=== PATIENT | male | born 1965 | race Caucasian/White ===

== ENCOUNTER 2022-06-09 15:39 | Inpatient (IN) | payer OTHER, SELFPAY ==
--- NOTE | ~2022-06-09 | MR_ITS ---
EXAMINATION: MRI ABDOMEN WITH AND WITHOUT CONTRAST CLINICAL INFORMATION: Abnormal CT of liver, Elevated LFT's, R/O mass. COMPARISON: 06/09/2022 CT scan TECHNIQUE: Multiple routine MRI sequences through the abdomen were obtained on a high-field 1.5Tesla MRI. Pre-and postcontrast images with 8 mL of Gadavist intravenous contrast were obtained. This included a dynamic contrast-enhanced technique. FINDINGS: Lung bases: The visualized lung bases are unremarkable. Liver: Liver demonstrates diffuse fatty infiltration with loss of signal on the out of phase imaging. There is also a well-demarcated T2 bright nonenhancing 1.7 cm cyst in the anterolateral aspect of segment 8 of the liver. There is a few scattered additional smaller T2 bright nonenhancing cysts noted as well. I do not appreciate any suspicious hepatic lesion. No biliary ductal dilatation. Gallbladder: Gallbladder is unremarkable. No suspicious gallstones or filling defects. No gallbladder wall thickening or pericholecystic inflammatory changes. Pancreas: Pancreas is homogeneous in signal. No pancreatic ductal dilatation or obstruction. No peripancreatic inflammatory changes or fluid. Spleen: Unremarkable Adrenals: Unremarkable Kidneys: Kidneys are normal in size, shape, and signal. No suspicious renal mass lesion seen. No hydronephrosis or perinephric edema. Other: No bulky adenopathy MR/MR abdomen wo/w con IMPRESSION: Diffuse fatty infiltration of the liver. Tiny simple appearing hepatic cysts seen the largest of which in the anterolateral aspect of segment 8 corresponds to the subtle hypodensity seen on the CT scan. No suspicious hepatic lesions nor biliary ductal dilatation.
--- NOTE | ~2022-06-09 | CT_ITS ---
EXAMINATION: CT ABDOMEN AND PELVIS WITHOUT CONTRAST CLINICAL INFORMATION: Diffuse abdominal pain COMPARISON: None TECHNIQUE: Multidetector volumetric imaging was performed from the superior aspect of the liver through the pubic symphysis. Sagittal and coronal reformatted images were obtained on the technologist's workstation. This CT examination was performed using dose optimization techniques as appropriate, variously including the following: *Automated exposure control *Adjustment of mA and/or kV according to patient size (this includes techniques or standardized protocols for targeted exams where dose is matched to indication/reason for exam; i.e. extremities or head) *Use of iterative reconstruction technique DLP: 524 mGy-cm FINDINGS: LUNG BASES: The visualized lung bases are unremarkable. LIVER, GALLBLADDER, AND BILIARY TREE: Hepatomegaly with the liver measuring 21.8 cm in craniocaudal extent. Diffuse hepatic hypoattenuation compatible steatosis with geographic area of more dense fatty infiltration in the caudate. Additionally, there are subtle heterogeneous attenuation throughout the liver. A discrete 1.5 cm low-density cyst is seen in segment 8. No other discrete lesion. No biliary ductal dilation. The gallbladder is unremarkable with no evidence of radiopaque gallstones, gallbladder wall thickening, or obvious pericholecystic inflammatory changes. PANCREAS: Unremarkable. SPLEEN: Unremarkable. ADRENAL GLANDS: Unremarkable. KIDNEYS AND URETERS: The kidneys are normal in size, shape, and attenuation. No hydronephrosis, hydroureter, or calculi seen. No perinephric stranding. BLADDER: Unremarkable. GASTROINTESTINAL TRACT: Extensive colonic diverticulosis. Relatively long segment of sigmoid and rectal circumferential mural thickening with extensive underlying diverticulosis and surrounding and prominent inflammatory fat stranding. Additionally, there is a small air-filled loculated appearing collection interposed between the anterior rectal wall and the inflamed sigmoid colon on axial image 77 of series 3. Findings suspicious for a small microperforation/contained perforation. No fluid-filled intramural or pericolonic abscess. No additional extraluminal gas or ivory intraperitoneal free air. Stomach is grossly unremarkable. There a few prominent though not frankly dilated distended loops of jejunum in the left upper quadrant with mild adjacent mesenteric fat stranding in small mesenteric lymph nodes. No appreciable small bowel wall thickening. Normal appendix. ABDOMINAL WALL: No significant hernia is appreciated. LYMPH NODES: Mildly enlarged portacaval lymph node measuring 1.2 cm in short axis, nonspecific. Small left upper quadrant mesenteric lymph nodes with surrounding mesenteric stranding, not enlarged by size criteria. No additional lymphadenopathy. VASCULAR: Mild to moderate vascular calcifications. Normal caliber abdominal aorta. PELVIC VISCERA: Unremarkable. OSSEOUS STRUCTURES: No acute fracture or suspicious osseous lesion. Multilevel degenerative disc disease most advanced at L4-L5 and L5-S1. CT/CT abdomen pelvis wo con IMPRESSION: 1. Relatively long segment thickening of the sigmoid and rectal wall with inflammatory fat stranding. Differential considerations include bowel wall ischemia or acute diverticulitis. Small pocket of loculated gas interposed between the rectum and inflamed sigmoid is suspicious for a small microperforation/contained perforation. No fluid-filled pericolonic abscess. 2. No pneumatosis to suggest specific evidence of bowel wall ischemia. 3. Prominently distended though not frankly dilated cluster degenerative bowel loops in the left hemiabdomen with mild mesenteric fat stranding and small likely reactive mesenteric lymph nodes, nonspecific. Findings could represent a localized ileus or enteritis versus mild mesenteric panniculitis. 4. Hepatomegaly and hepatic steatosis. Slightly heterogeneous attenuation throughout the liver, which could be due to heterogeneous fatty infiltration though would recommend a multiphasic MRI abdomen to assess for underlying hepatic lesions or other infiltrative process.
--- NOTE | ~2022-06-09 | XR_ITS ---
EXAMINATION: PORTABLE CHEST 1 VIEW CLINICAL INFORMATION: cp . COMPARISON: No recent pertinent prior studies are available for comparison. TECHNIQUE: Portable frontal view of the chest was obtained. FINDINGS: The lungs are well expanded. No focal infiltrate, effusion, edema, or pneumothorax. Cardiac and mediastinal silhouettes are within normal limits for technique. No acute bony abnormality seen. XR/XR chest 1V IMPRESSION: No evidence of acute disease.
[2022-06-09 15:51] VITALS: BP 167/99; PULSE 112; RESP 20; TEMP 36.8; O2SAT 97; BMI 21.6
--- NOTE | 2022-06-09 15:53 | ECG_ITS ---
Test Reason : dizzy Blood Pressure : / mmHG Vent. Rate : 104 BPM Atrial Rate : 104 BPM P-R Int : 194 ms QRS Dur : 096 ms QT Int : 352 ms P-R-T Axes : 047 067 -14 degrees QTc Int : 462 ms Artifact in tracing Sinus tachycardia Due to artifact, cannot assess ST segment abnormality; nothing obvious No previous ECGs available Referred By: Generic ED Physician Electronically Signed By:JOSSE HOWELL
[2022-06-09 16:53] LABS: Hematocrit 40.2 % (42.0-52.0); Hemoglobin 14.8 g/dl (14.0-18.0); Mean Corpuscular HGB Conc 36.8 g/dl (31.0-36.0); Mean Corpuscular Hemoglobin 33.9 pg (27.0-33.0); Mean Platelet Volume 9.2 fL (9.4-12.4); Platelet Count 236 X10*3/uL (160-400); Red Blood Count 4.37 X10*6/uL (4.60-5.80); Red Cell Distribution Width 12.7 % (11.0-16.0); White Blood Count 8.6 X10*3/uL (4.8-10.8)
[2022-06-09 17:06] LABS: Anion Gap 18 (12-20); Blood Urea Nitrogen 15 mg/dL (9-16); Calcium 8.7 mg/dL (8.4-10.2); Carbon Dioxide 22 mmol/L (22-29); Chloride 103 mmol/L (96-108); Creatinine Clr Calc Pharmacy 95.2; Estimated Glomerular Filt Rate > 60; Glucose Random 125 mg/dL (60-115); Sodium 140 mmol/L (135-145)
[2022-06-09 17:13] LABS: Troponin-I High Sensitivity < 3.5 ng/L (<3.5-35.0)
--- NOTE | 2022-06-09 19:38 | ED.GENADULT ---
HPI - General Adult General Chief complaint: Recheck/Abnormal Lab/Rx Stated complaint: cardiac issues sent by a specialist Time Seen by Provider: 06/09/22 19:37 Source: patient Mode of arrival: ambulatory Limitations: no limitations History of Present Illness HPI narrative: Patient sent from GI office for blood pressure 167/99, headache dizziness. Patient been feeling dizzy for last 1 week having sweating spells denies any chest pain or palpitation or shortness of breath on arrival patient's blood pressure was 167/99 pulse rate 112 temperature 98.2 saturating 97% on room air Related Data Home Medications Medication Instructions Recorded Confirmed allopurinol 300 mg tablet 1 tab PO DAILY 06/09/22 06/09/22 Allergies Allergy/AdvReac Type Severity Reaction Status Date / Time No Known Allergies Allergy Verified 06/09/22 19:42 Review of Systems Review of Systems: Yes all other systems are reviewed and are negative [facility] Social History Social History Advance Directives: No Advance Directives Information Provided: No Physical Exam ED Vital Signs: Vital Signs - 24 hr 06/09/22 15:51 06/09/22 20:18 Temperature 98.2 F Pulse Rate 112 H Respiratory Rate 20 Blood Pressure 167/99 H 158/88 H Pulse Oximetry 97 Oxygen Delivery Method Room Air BMI result Body Mass Index 21.6 Appearance: Alert. Oriented X3. No acute distress. Eyes: No pallor icterus ENT: Pharynx normal. Oral Mucosa moist Neck: Normal inspection. Neck supple. CVS: Normal heart rate and rhythm. Pulses normal. Respiratory: No respiratory distress. Equal air entry bilateral, no wheezing/rales/rhonchi Abdomen: Soft , deep tenderness suprapubic area and left lower quadrant no guarding or rebound tenderness Bowel sounds are present, no mass palpable, no CVA tenderness Skin: Skin warm and dry. Normal skin color. Normal skin turgor. Extremities: No lower extremity edema. No calf tenderness Neuro: Oriented X 3. No motor deficit. No sensory deficit.No cerebellar signs , cranial nerves II-XII intact Medical Decision Making MDM Narrative Medical decision making narrative: 2200Patient with transient elevated blood pressure and hypokalemia noticed to have lower abdominal pain for last few days CT scan showed micro perforation with increased inflammation. Will admit the patient for possible ruptured diverticulitis will start patient on Zosyn patient repeat blood pressure improved to 158/88 patient's lactic acid level is only 1.0 unlikely ischemic Lab Data Lab results reviewed: Yes I reviewed the patient's lab results. Result diagrams: 06/09/22 16:43 06/09/22 16:43 Labs: Lab Results 06/09/22 06/09/22 06/09/22 Range/Units 16:43 16:43 16:43 WBC 8.6 (4.8-10.8) X10*3/uL RBC 4.37 L (4.60-5.80) X10*6/uL Hgb 14.8 (14.0-18.0) g/dl Hct 40.2 L (42.0-52.0) % MCV 92.0 (80.0-98.0) fL MCH 33.9 H (27.0-33.0) pg MCHC 36.8 H (31.0-36.0) g/dl RDW 12.7 (11.0-16.0) % Plt Count 236 (160-400) X10*3/uL MPV 9.2 L (9.4-12.4) fL Absolute Nucleated RBC 0.000 (0.0-0.012) X10*3/uL Nucleated RBC % (auto) 0.0 (0.0-0.2) /100WBC Sodium 140 (135-145) mmol/L Potassium 3.0 L (3.3-5.1) mmol/L Chloride 103 (96-108) mmol/L Carbon Dioxide 22 (22-29) mmol/L Anion Gap 18 (12-20) BUN 15 (9-16) mg/dL Creatinine 0.90 (0.5-1.4) mg/dL Estim Creat Clear Calc 95.2 Estimated GFR > 60 Random Glucose 125 H (60-115) mg/dL Calcium 8.7 (8.4-10.2) mg/dL Troponin I High Sens < 3.5 (<3.5-35.0) ng/L COVID-19 ([facility]) (Negative) COVID-19 Clin Com 06/09/22 Range/Units 20:04 WBC (4.8-10.8) X10*3/uL RBC (4.60-5.80) X10*6/uL Hgb (14.0-18.0) g/dl Hct (42.0-52.0) % MCV (80.0-98.0) fL MCH (27.0-33.0) pg MCHC (31.0-36.0) g/dl RDW (11.0-16.0) % Plt Count (160-400) X10*3/uL MPV (9.4-12.4) fL Absolute Nucleated RBC (0.0-0.012) X10*3/uL Nucleated RBC % (auto) (0.0-0.2) /100WBC Sodium (135-145) mmol/L Potassium (3.3-5.1) mmol/L Chloride (96-108) mmol/L Carbon Dioxide (22-29) mmol/L Anion Gap (12-20) BUN (9-16) mg/dL Creatinine (0.5-1.4) mg/dL Estim Creat Clear Calc Estimated GFR Random Glucose (60-115) mg/dL Calcium (8.4-10.2) mg/dL Troponin I High Sens (<3.5-35.0) ng/L COVID-19 ([facility]) Negative (Negative) COVID-19 Clin Com See Note Imaging Data CT scan - abdomen: Radiologist's impression: RDER #: [id number] CT/CT abdomen pelvis wo con IMPRESSION: ? 1. Relatively long segment thickening of the sigmoid and rectal wall with inflammatory fat stranding. Differential considerations include bowel wall ischemia or acute diverticulitis. Small pocket of loculated gas interposed between the rectum and inflamed sigmoid is suspicious for a small microperforation/contained perforation. No fluid-filled pericolonic abscess. 2. No pneumatosis to suggest specific evidence of bowel wall ischemia. 3. Prominently distended though not frankly dilated cluster degenerative bowel loops in the left hemiabdomen with mild mesenteric fat stranding and small likely reactive mesenteric lymph nodes, nonspecific. Findings could represent a localized ileus or enteritis versus mild mesenteric panniculitis. 4. Hepatomegaly and hepatic steatosis. Slightly heterogeneous attenuation throughout the liver, which could be due to heterogeneous fatty infiltration though would recommend a multiphasic MRI abdomen to assess for underlying hepatic lesions or other infiltrative process. ? Discharge Plan Discharge Clinical Impression: Acute diverticulitis, Acute hypokalemia Patient Disposition: Admitted As Inpatient
[2022-06-09] MEDS: Potassium Bicarbonate/Cit AC 25 MEQ TABLET.EFF PO (20:16)
[2022-06-09 20:18] VITALS: BP 158/88
[2022-06-09 20:24] LABS: COVID-19 Test Negative (Negative); IDNOW Serial# 55D5AD1C
--- NOTE | 2022-06-09 22:15 | P.HPHOSP_ITS ---
History of Present Illness Date of Service: 06/09/22 Chief Complaint: abd pain 57-year-old male with past medical history of gout presents to the hospital with complaints of lower abdominal pain. Patient reports that his symptoms started about a week and a half ago, he also has history of hemorrhoids therefore with the persistent pain and that history of hemorrhoid he went to visit his GI doctor, of the GI doctor he became dizzy, the checked his blood pressure was elevated therefore he was sent to the hospital. On arrival to the hospital patient's BP was found in the 160s/99 and improved with administration of 10 mg of IV hydralazine. But as patient was complaining of lower abdominal pain, CT scan of the abdomen was obtained which showed diverticulitis with small microperforation/contained perforation. On questioning the patient reports that his symptoms started about a week and half ago, 4/10, constant, nonradiating, localized to the lower abdomen across, not associated with any nausea or vomiti ng, no chest pain or shortness of breath, no cough, no urinary symptoms no lower extremity edema. He has no headache or change in vision. Reports that he is feels anxious. On arrival to the ED patient's heart rate in 112, blood pressure 167/99. Labs are significant for WBC count of 8.6, lactic acid of 1.0, Abdomen pelvic CT has multiple abnormal findings including long segment thickening of the sigmoid and rectal wall with inflammatory fat stranding, differential include bowels fowler yanes Saba or acute diverticulitis, small pocket of loculated gas interposed between the rectum and the inflamed sigmoid suspicious for small microperforation/contained perforation. No pneumatosis to suggest specific evidence of bowel wall ischemia, prominent distended but not frankly dilated cluster degenerative bowel loops in the left hemiabdomen with mild mesenteric fat stranding and small reactive mesenteric lymph nodes differentials include localize ileus or enteritis versus mild mesenteric pancolitis Patient started on IV antibiotics and will be admitted for further management Review of Systems Review of Systems: Yes all other systems are reviewed and are negative [facility] Medical History (Updated 06/10/22 @ 06:39 by Eva Phillips MD) Gout Family History (Updated 06/10/22 @ 06:38 by Eva Phillips MD) Other No family history of coronary artery disease Surgical History (Updated 06/10/22 @ 06:38 by Eva Phillips MD) No pertinent past surgical history Social History Advance Directives: No Advance Directives Information Provided: No Meds Allergies Allergy/AdvReac Type Severity Reaction Status Date / Time No Known Allergies Allergy Verified 06/09/22 19:42 Home Medications Medication Instructions Recorded Confirmed Last Taken Type allopurinol 300 mg tablet 1 tab PO DAILY 06/09/22 06/09/22 Unknown History Physical Exam Vital Signs and Narrative: Vital Signs: Last Vital Signs Temp 98.2 F 06/09/22 15:51 Pulse 112 H 06/09/22 15:51 Resp 20 06/09/22 15:51 BP 158/88 H 06/09/22 20:18 Pulse Ox 97 06/09/22 15:51 O2 Del Method 06/09/22 15:51 BMI result Body Mass Index 21.6 Const: General: cooperative and no acute distress Orientation/consciousness: patient oriented x3 Eyes: General: appearance normal, both eyes and all related structures Resp: Effort & Inspection: normal respiratory effort Auscultation: clear to auscultation bilaterally Cardio: Rate: regular rate Rhythm: regular rhythm GI: Other: Lower abdominal tenderness with no rebound or guarding Palpation (GI): Soft to palpation Auscultation: normal bowel sounds Skin: General skin exam: no rashes or lesions noted Neuro: General: patient oriented x3 Cognition (Neuro): normal cognition Extrem: General: Yes normal to inspection and Yes no pedal edema Results Labs CBC and Chem 7: 06/09/22 16:43 06/09/22 16:43 Labs: Laboratory Results - last 24 hr 06/09/22 06/09/22 06/09/22 16:43 16:43 20:04 MCV 92.0 MCH 33.9 H MCHC 36.8 H RDW 12.7 Plt Count 236 MPV 9.2 L Absolute Nucleated RBC 0.000 Nucleated RBC % (auto) 0.0 Anion Gap 18 Estim Creat Clear Calc 95.2 Estimated GFR > 60 Random Glucose 125 H Calcium 8.7 COVID-19 ([facility]) Negative COVID-19 Clin Com See Note Imaging Radiologist's Impressions: Impressions Chest X-Ray 06/09/22 20:00 IMPRESSION: No evidence of acute disease. Abdomen/Pelvis CT 06/09/22 20:47 IMPRESSION: 1. Relatively long segment thickening of the sigmoid and rectal wall with inflammatory fat stranding. Differential considerations include bowel wall ischemia or acute diverticulitis. Small pocket of loculated gas interposed between the rectum and inflamed sigmoid is suspicious for a small microperforation/contained perforation. No fluid-filled pericolonic abscess. 2. No pneumatosis to suggest specific evidence of bowel wall ischemia. 3. Prominently distended though not frankly dilated cluster degenerative bowel loops in the left hemiabdomen with mild mesenteric fat stranding and small likely reactive mesenteric lymph nodes, nonspecific. Findings could represent a localized ileus or enteritis versus mild mesenteric panniculitis. 4. Hepatomegaly and hepatic steatosis. Slightly heterogeneous attenuation throughout the liver, which could be due to heterogeneous fatty infiltration though would recommend a multiphasic MRI abdomen to assess for underlying hepatic lesions or other infiltrative process. Assessment and Plan (1) Acute diverticulitis: Status: Acute (2) Abnormal abdominal CT scan: Status: Acute Plan 57-year-old male with past medical history of gout, lower diagnosed hypertension presents to the hospital with a hypertensive episode at GI doctor office found to have possible diverticulitis # acute diverticulitis with micro perforation - has significant abnormality of abdominal CT as seen above - no leukocytosis, afebrile, normal lactic acid - will treat with IV antibiotics - IV fluids - GI and general surgery consulted as he has significantly abdomen abdominal CT - LDH pending # abnormal abdominal CT - showing possible enteritis versus pancolitis versus ileus as well as possible bowel wall ischemia - IV antibiotics started - IV fluids - GI consulted # gout - continue allopurinol DVT prophylaxis: Lovenox Given the severity of his abnormal CT patient will require minimum 2 night hospital stay for further evaluation by GI, Quality Stroke Does the patient have a stroke diagnosis?: No VTE Prior VTE?: No VTE Risk Level:: Medical - moderate - high VTE Device Contraindication: Treatment Not Indicated VTE Drug Contraindication: N/A - Med Ordered
[2022-06-09] MEDS: Piperacillin Sodium/Tazobactam 3.375 GM in 0.9 % Sodium Chloride 50 ML IV (22:33)
[2022-06-09] MEDS: Enoxaparin Sodium 40 MG/0.4 ML SYRINGE SUBCUT (22:34)
[2022-06-09] MEDS: cefTRIAXone sodium 1 GM in 0.9 % Sodium Chloride 50 ML IV (22:38)
[2022-06-09 22:40] LABS: INTERNATIONAL NORM RATIO 0.9 (0.9-1.1); Prothrombin Time 10.8 SEC (10.0-13.1)
[2022-06-09] MEDS: 0.9 % Sodium Chloride 1,000 ML 999 ML IV (23:40)
[2022-06-09 23:57] VITALS: BP 123/78; PULSE 64; O2SAT 98
[2022-06-10] MEDS: metroNIDAZOLE 500 MG TABLET PO ×4 (02:29→23:25)
[2022-06-10] MEDS: 0.9 % Sodium Chloride Flush 3 ML SYRINGE IVFLUSH ×4 (02:30→20:38)
[2022-06-10 06:00] VITALS: BP 148/84; PULSE 68; O2SAT 97
[2022-06-10 06:42] LABS: MANUAL DIFF FLAG NO
[2022-06-10 07:22] LABS: Basophils Absolute Auto 0.1 X10*3/uL (0.0-0.2); Basophils Percent Auto 0.7 % (0-2); Eosinophils Absolute Auto 0.1 X10*3/uL (0.0-0.4); Eosinophils Percent Auto 1.6 % (0-4); Hematocrit 37.7 % (42.0-52.0); Hemoglobin 13.8 g/dl (14.0-18.0); Imm Gran Abs Auto 0.02 X10*3/uL (0.00-0.03); Imm Gran Pct Auto 0.3 % (0.0-0.4); Lymphocytes Percent Auto 29.8 % (20-40); Mean Corpuscular HGB Conc 36.6 g/dl (31.0-36.0); Mean Corpuscular Hemoglobin 33.9 pg (27.0-33.0); Mean Corpuscular Volume 92.6 fL (80.0-98.0); Monocytes Absolute Auto 0.8 X10*3/uL (0.1-1.2); Monocytes Percent Auto 11.2 % (2-11); Neutrophils Absolute Auto 3.8 x10*3/uL (2.0-8.3); Neutrophils Percent Auto 56.4 % (45-73); Platelet Count 215 X10*3/uL (160-400); Red Blood Count 4.07 X10*6/uL (4.60-5.80); Red Cell Distribution Width 12.8 % (11.0-16.0); White Blood Count 6.7 X10*3/uL (4.8-10.8)
[2022-06-10 07:48] LABS: Anion Gap 12 (12-20); Blood Urea Nitrogen 9 mg/dL (9-16); Calcium 7.8 mg/dL (8.4-10.2); Carbon Dioxide 25 mmol/L (22-29); Chloride 102 mmol/L (96-108); Creatinine Clr Calc Pharmacy 109.9; Estimated Glomerular Filt Rate > 60; Glucose Random 86 mg/dL (60-115); Potassium 2.9 mmol/L (3.3-5.1); Sodium 136 mmol/L (135-145)
[2022-06-10 07:56] VITALS: BP 141/87; PULSE 70; RESP 18; O2SAT 95
--- NOTE | 2022-06-10 07:58 | PC.NURSE ---
pt alert and oriented, skin pwd, respiration even and unlabored, pt denies pain/nausea at this time. vs stable
--- NOTE | 2022-06-10 08:03 | PM.CNGS ---
History of Present Illness Consult details Consult date: 06/10/22 Narrative: 57-year-old male admitted last night because of abdominal pain. He describes is mostly in the lower abdomen. He says that he has had this for several days. He denies nausea or vomiting. He denies diarrhea or any blood per rectum. His CAT scan showed long segment thickening of the sigmoid and the rectum small pocket of extraluminal gas that may represent a microperforation. He currently says that he feels well and has minimal pain. Review of Systems Constitutional: Constitutional: Denies chills and Denies fever(s) Cardiovascular: Cardiovascular: Denies chest pain, Denies dyspnea and Denies dyspnea on exertion Respiratory: Respiratory: Denies cough, Denies dyspnea and Denies dyspnea on exertion Gastrointestinal: Gastrointestinal: Denies hematochezia and Denies change in bowel habits Genitourinary: Genitourinary: Denies hematuria and Denies difficulty urinating Musculoskeletal: Musculoskeletal: Denies back pain and Denies limited range of motion Neurologic: Denies focal weakness and Denies convulsions Psychiatric: Psychiatric: Denies depression and Denies mood swings PMF Past Medical History Medical History Gout Family History Family History Other No family history of coronary artery disease Surgical History Surgical History No pertinent past surgical history Social History Social History Household Members: Spouse Housing: House Do you presently have visiting nurse or other home services: No Unable to assess alcohol history related to: Unknown Patient Tobacco Use Status: Never used Tobacco e-Cigarette/Vaping Use: Never Used Second Hand Smoke Exposure: No service: No Current occupational status: employed Meds Allergies Allergy/AdvReac Type Severity Reaction Status Date / Time No Known Allergies Allergy Verified 06/09/22 19:42 Active Medications: Current Medications Acetaminophen (Acetaminophen 325 Mg Tablet) 650 mg PO Q6H PRN PRN Reason: Pain, Mild (Pain Scale 1-3) Docusate Sodium (Docusate Sodium 100 Mg Capsule) 100 mg PO DAILY PRN PRN Reason: Constipation Enoxaparin Sodium (Enoxaparin Sodium 40 Mg/0.4 Ml Syringe) 40 mg SUBCUT Q24H [facility] Last Admin: 06/09/22 22:34 Dose: 40 mg Ceftriaxone Sodium 1 gm/ (Sodium Chloride) 50 mls @ 100 mls/hr IV Q24H [facility] Last Infusion: 06/09/22 23:07 Dose: Infused Potassium Chloride () 10 meq in 100 mls @ 100 mls/hr IV Q1H [facility] Stop: 06/10/22 11:59 Metronidazole (Metronidazole 500 Mg Tablet) 500 mg PO Q8H [facility] Last Admin: 06/10/22 07:51 Dose: 500 mg Ondansetron HCl (Ondansetron Hcl 4 Mg/2 Ml Vial) 4 mg IVPUSH Q8H PRN PRN Reason: Nausea and Vomiting Oxycodone HCl (Oxycodone Hcl Immed Release 5 Mg Tablet) 5 mg PO Q6H PRN PRN Reason: Pain, Severe (Pain Scale 7-10) Sodium Chloride (0.9 % Sodium Chloride Flush 3 Ml Syringe) 3 ml IVFLUSH QSHIFT [facility] Last Admin: 06/10/22 07:51 Dose: 3 ml Home Medications Medication Instructions Recorded Confirmed Last Taken Type allopurinol 300 mg tablet 1 tab PO DAILY 06/09/22 06/10/22 06/09/22 History Physical Exam Vital Signs: Vital Signs: Last Vital Signs Temp 98.2 F 06/09/22 15:51 Pulse 70 06/10/22 07:56 Resp 18 06/10/22 07:56 BP 141/87 H 06/10/22 07:56 Pulse Ox 95 06/10/22 07:56 O2 Del Method 06/10/22 07:56 BMI result Body Mass Index 21.6 Const: General: comfortable and no acute distress Orientation/consciousness: patient oriented x3 Neck: Neck: Yes no lymphadenopathy Resp: Auscultation: clear to auscultation bilaterally Cardio: Rhythm: regular rhythm GI: Other: Minimal tenderness mostly in lower abdomen, no guarding or rebound Palpation (GI): Soft to palpation, nontender and no guarding Neuro: General: patient oriented x3 Results Labs Result diagrams: 06/11/22 05:54 06/13/22 05:57 Labs: Abnormal lab results 06/09/22 06/09/22 06/10/22 Range/Units 16:43 16:43 06:22 RBC 4.37 L 4.07 L (4.60-5.80) X10*6/uL Hgb 13.8 L (14.0-18.0) g/dl Hct 40.2 L 37.7 L (42.0-52.0) % MCH 33.9 H 33.9 H (27.0-33.0) pg MCHC 36.8 H 36.6 H (31.0-36.0) g/dl MPV 9.2 L (9.4-12.4) fL [place] % (Auto) 11.2 H (2-11) % Potassium 3.0 L (3.3-5.1) mmol/L Random Glucose 125 H (60-115) mg/dL Calcium (8.4-10.2) mg/dL 06/10/22 Range/Units 06:22 RBC (4.60-5.80) X10*6/uL Hgb (14.0-18.0) g/dl Hct (42.0-52.0) % MCH (27.0-33.0) pg MCHC (31.0-36.0) g/dl MPV (9.4-12.4) fL [place] % (Auto) (2-11) % Potassium 2.9 L (3.3-5.1) mmol/L Random Glucose (60-115) mg/dL Calcium 7.8 L D (8.4-10.2) mg/dL Short CBC 06/09/22 06/10/22 Range/Units 16:43 06:22 WBC 8.6 6.7 (4.8-10.8) X10*3/uL Hgb 14.8 13.8 L (14.0-18.0) g/dl Hct 40.2 L 37.7 L (42.0-52.0) % Plt Count 236 215 (160-400) X10*3/uL BMP 06/09/22 06/10/22 16:43 06:22 Sodium 140 136 Potassium 3.0 L 2.9 L Chloride 103 102 Carbon Dioxide 22 25 BUN 15 9 Creatinine 0.90 0.78 Calcium 8.7 7.8 L D All other labs normal. Imaging Additional studies: Laboratory Results WBC 6.7 X10*3/uL (4.8-10.8) 06/10/22 06:22 RBC 4.07 X10*6/uL (4.60-5.80) L 06/10/22 06:22 Hgb 13.8 g/dl (14.0-18.0) L 06/10/22 06:22 Hct 37.7 % (42.0-52.0) L 06/10/22 06:22 MCV 92.6 fL (80.0-98.0) 06/10/22 06:22 MCH 33.9 pg (27.0-33.0) H 06/10/22 06:22 MCHC 36.6 g/dl (31.0-36.0) H 06/10/22 06:22 RDW 12.8 % (11.0-16.0) 06/10/22 06:22 Plt Count 215 X10*3/uL (160-400) 06/10/22 06:22 MPV 10.0 fL (9.4-12.4) 06/10/22 06:22 Immature Gran % (Auto) 0.3 % (0.0-0.4) 06/10/22 06: Neut % (Auto) 56.4 % (45-73) 06/10/22 06:22 Lymph % (Auto) 29.8 % (20-40) 06/10/22 06:22 [place] % (Auto) 11.2 % (2-11) H 06/10/22 06:22 Eos % (Auto) 1.6 % (0-4) 06/10/22 06: Baso % (Auto) 0.7 % (0-2) 06/10/22 06:22 Lymph # (Auto) 2.0 X10*3/uL (1.2-4.9) 06/10/22 06:22 [place] # (Auto) 0.8 X10*3/uL (0.1-1.2) 06/10/22 06:22 Eos # (Auto) 0.1 X10*3/uL (0.0-0.4) 06/10/22 06:22 Baso # (Auto) 0.1 X10*3/uL (0.0-0.2) 06/10/22 06:22 Abs Immat Gran (auto) 0.02 X10*3/uL (0.00-0.03) 06/10/22 06:22 Absolute Neuts (auto) 3.8 x10*3/uL (2.0-8.3) 06/10/22 06:22 Absolute Nucleated RBC 0.000 X10*3/uL (0.0-0.012) 06/10/22 06:22 Nucleated RBC % (auto) 0.0 /100WBC (0.0-0.2) 06/10/22 06:22 PT 10.8 SEC (10.0-13.1) 06/09/22 22:21 INR 0.9 (0.9-1.1) 06/09/22 22:21 Sodium 136 mmol/L (135-145) 06/10/22 06:22 Potassium 2.9 mmol/L (3.3-5.1) L 06/10/22 06:22 Chloride 102 mmol/L (96-108) 06/10/22 06:22 Carbon Dioxide 25 mmol/L (22-29) 06/10/22 06:22 Anion Gap 12 (12-20) 06/10/22 06:22 BUN 9 mg/dL (9-16) 06/10/22 06:22 Creatinine 0.78 mg/dL (0.5-1.4) 06/10/22 06:22 Estim Creat Clear Calc 109.9 06/10/22 06:22 Estimated GFR > 60 06/10/22 06:22 Random Glucose 86 mg/dL (60-115) 06/10/22 06:22 Lactic Acid 1.0 mmol/L (0.5-2.0) 06/09/22 22:19 Calcium 7.8 mg/dL (8.4-10.2) L D 06/10/22 06:22 Troponin I High Sens < 3.5 ng/L (<3.5-35.0) 06/09/22 16:43 COVID-19 (ANNITA) Negative (Negative) 06/09/22 20:04 COVID-19 Clin Com See Note 06/09/22 20:04 Impressions Chest X-Ray 06/09/22 20:00 IMPRESSION: No evidence of acute disease. Abdomen/Pelvis CT 06/09/22 20:47 IMPRESSION: 1. Relatively long segment thickening of the sigmoid and rectal wall with inflammatory fat stranding. Differential considerations include bowel wall ischemia or acute diverticulitis. Small pocket of loculated gas interposed between the rectum and inflamed sigmoid is suspicious for a small microperforation/contained perforation. No fluid-filled pericolonic abscess. 2. No pneumatosis to suggest specific evidence of bowel wall ischemia. 3. Prominently distended though not frankly dilated cluster degenerative bowel loops in the left hemiabdomen with mild mesenteric fat stranding and small likely reactive mesenteric lymph nodes, nonspecific. Findings could represent a localized ileus or enteritis versus mild mesenteric panniculitis. 4. Hepatomegaly and hepatic steatosis. Slightly heterogeneous attenuation throughout the liver, which could be due to heterogeneous fatty infiltration though would recommend a multiphasic MRI abdomen to assess for underlying hepatic lesions or other infiltrative process. Assessment and Plan (1) Acute diverticulitis: Status: Acute He was admitted for lower abdominal pain, with a CT scan showing a long segment thickening of the distal sigmoid and rectum with a small locule of air that may represent a microperforation This is likely from diverticulitis. He currently feels much better and has minimal pain and tenderness on exam. I agree with keeping him on IV antibiotics for now. He should be on clear liquids only for today at least His exam is otherwise very benign and he looks well. His white count is normal. I will follow along while he is in the hospital. Procedures Date of Service Date of Service: 06/10/22
[2022-06-10] MEDS: Potassium Chloride/H20 10 MEQ/100 ML PIGGYBACK 100 MEQ IV ×4 (08:33→12:25)
--- NOTE | 2022-06-10 08:44 | PHA.MEDREC ---
Pharmacy Consult ? Medication Reconciliation Pharmacy has completed the medication reconciliation. Reviewed med rec done by nursing, confirmed with pt no longer taking meloxicam due to side effects
[2022-06-10 09:01] LABS: Alanine Aminotransferase 55 U/L (0-40); Albumin Level 3.5 g/dL (3.5-5.0); Alkaline Phosphatase 85 U/L (39-117); Aspartate Amino Transferase 159 U/L (5-37); Bilirubin Direct 0.6 mg/dL (0.0-0.5); Bilirubin Total 1.2 mg/dL (0.0-1.0); Magnesium 1.5 mg/dL (1.6-2.6); Total Protein 6.4 g/dL (6.5-8.0)
[2022-06-10 10:40] LABS: Lactate Dehydrogenase 245 U/L (118-273)
[2022-06-10] MEDS: allopurinoL 300 MG TABLET PO (11:09)
[2022-06-10 12:01] VITALS: BP 138/82; PULSE 64; RESP 16; TEMP 37.2; O2SAT 98
--- NOTE | 2022-06-10 12:28 | P.PNIM_ITS ---
Subjective Subjective Date of Service: 06/10/22 Interval History: Acute diverticulitis Review of Systems has Still mid abdominal soreness otherwise denies any nausea, vomiting, fever or chills Physical Exam Vital Signs: Vital Signs: Last Vital Signs Temp 99.0 F 06/10/22 12:01 Pulse 64 06/10/22 12:01 Resp 16 06/10/22 12:01 BP 138/82 06/10/22 12:01 Pulse Ox 98 06/10/22 12:01 O2 Del Method 06/10/22 12:01 BMI result Body Mass Index 21.6 Appearance: Alert.? Oriented X3.? not in distress.?. cvs: rrr, [id number] , no murmur res: clear to auscultation ,no rhonchii or wheezing abd: no rebound or guarding ,mid abd soarness ,nd , bs present. ext pulses present , no cyanosis. neuro: axo3 , nonfocal. Objective Data Active Medications Acetaminophen (Acetaminophen 325 Mg Tablet) 650 mg PO Q6H PRN PRN Reason: Pain, Mild (Pain Scale 1-3) Allopurinol (Allopurinol 300 Mg Tablet) 300 mg PO DAILY [facility] Last Admin: 06/10/22 11:09 Dose: 300 mg Documented By: DARCIOPECayetano Docusate Sodium (Docusate Sodium 100 Mg Capsule) 100 mg PO DAILY PRN PRN Reason: Constipation Enoxaparin Sodium (Enoxaparin Sodium 40 Mg/0.4 Ml Syringe) 40 mg SUBCUT Q24H [facility] Last Admin: 06/09/22 22:34 Dose: 40 mg Documented By: JACQUE Ceftriaxone Sodium 1 gm/ (Sodium Chloride) 50 mls @ 100 mls/hr IV Q24H [facility] Last Infusion: 06/09/22 23:07 Dose: 0 mls/hr Documented By: JACQUE Metronidazole (Metronidazole 500 Mg Tablet) 500 mg PO Q8H [facility] Last Admin: 06/10/22 07:51 Dose: 500 mg Documented By: JOSIE Ondansetron HCl (Ondansetron Hcl 4 Mg/2 Ml Vial) 4 mg IVPUSH Q8H PRN PRN Reason: Nausea and Vomiting Oxycodone HCl (Oxycodone Hcl Immed Release 5 Mg Tablet) 5 mg PO Q6H PRN PRN Reason: Pain, Severe (Pain Scale 7-10) Sodium Chloride (0.9 % Sodium Chloride Flush 3 Ml Syringe) 3 ml IVFLUSH QSHIFT [facility] Last Admin: 06/10/22 07:51 Dose: 3 ml Documented By: JOSIE Labs CBC & Chem 7: 06/10/22 06:22 06/10/22 06:22 Labs: Laboratory Results - last 24 hr 06/09/22 06/09/22 06/09/22 16:43 16:43 20:04 MCV 92.0 MCH 33.9 H MCHC 36.8 H RDW 12.7 Plt Count 236 MPV 9.2 L Immature Gran % (Auto) Neut % (Auto) Lymph % (Auto) [place] % (Auto) Eos % (Auto) Baso % (Auto) Lymph # (Auto) [place] # (Auto) Eos # (Auto) Baso # (Auto) Abs Immat Gran (auto) Absolute Neuts (auto) Absolute Nucleated RBC 0.000 Nucleated RBC % (auto) 0.0 PT INR Anion Gap 18 Estim Creat Clear Calc 95.2 Estimated GFR > 60 Random Glucose 125 H Lactic Acid Calcium 8.7 Magnesium Total Bilirubin Direct Bilirubin AST ALT Alkaline Phosphatase Lactate Dehydrogenase Total Protein Albumin COVID-19 ([facility]ITA) Negative COVID-19 Clin Com See Note 06/09/22 06/09/22 06/10/22 22:19 22:21 06:22 MCV 92.6 MCH 33.9 H MCHC 36.6 H RDW 12.8 Plt Count 215 MPV 10.0 Immature Gran % (Auto) 0.3 Neut % (Auto) 56.4 Lymph % (Auto) 29.8 [place] % (Auto) 11.2 H Eos % (Auto) 1.6 Baso % (Auto) 0.7 Lymph # (Auto) 2.0 [place] # (Auto) 0.8 Eos # (Auto) 0.1 Baso # (Auto) 0.1 Abs Immat Gran (auto) 0.02 Absolute Neuts (auto) 3.8 Absolute Nucleated RBC 0.000 Nucleated RBC % (auto) 0.0 PT 10.8 INR 0.9 Anion Gap Estim Creat Clear Calc Estimated GFR Random Glucose Lactic Acid 1.0 Calcium Magnesium Total Bilirubin Direct Bilirubin AST ALT Alkaline Phosphatase Lactate Dehydrogenase Total Protein Albumin COVID-19 (ANNITA) COVID-19 Clin Com 06/10/22 06:22 MCV MCH MCHC RDW Plt Count MPV Immature Gran % (Auto) Neut % (Auto) Lymph % (Auto) [place] % (Auto) Eos % (Auto) Baso % (Auto) Lymph # (Auto) [place] # (Auto) Eos # (Auto) Baso # (Auto) Abs Immat Gran (auto) Absolute Neuts (auto) Absolute Nucleated RBC Nucleated RBC % (auto) PT INR Anion Gap 12 Estim Creat Clear Calc 109.9 Estimated GFR > 60 Random Glucose 86 Lactic Acid Calcium 7.8 L D Magnesium 1.5 L Total Bilirubin 1.2 H Direct Bilirubin 0.6 H AST 159 H ALT 55 H Alkaline Phosphatase 85 Lactate Dehydrogenase 245 Total Protein 6.4 L Albumin 3.5 COVID-19 ([facility]) COVID-19 Clin Com Assessment and Plan (1) Acute diverticulitis: Status: Acute (2) Acute hypokalemia: Status: Acute Plan 57-year-old male with past medical history of gout, lower diagnosed hypertension presents to the hospital with a hypertensive episode at GI doctor office found to have possible diverticulitis # acute diverticulitis with micro perforation - has significant abnormality of abdominal CT as seen above - no leukocytosis, afebrile, normal lactic acid - will treat with IV antibiotics - IV fluids - GI and general surgery consulted as he has significantly abdomen abdominal CT - LDH pending # abnormal abdominal CT - showing possible enteritis versus pancolitis versus ileus as well as possible bowel wall ischemia - IV antibiotics started - IV fluids - GI consulted # gout - continue allopurinol hypokalemia : added potassium DVT prophylaxis: Lovenox inpatient need :acute diverticulitis with micro perforation Quality Stroke Does the patient have a stroke diagnosis?: No VTE Prior VTE?: No VTE Risk Level:: Medical - moderate - high VTE Device Contraindication: Treatment Not Indicated VTE Drug Contraindication: N/A - Med Ordered
--- NOTE | 2022-06-10 14:32 | PC.NURSE ---
Report given to Jena on S3. Waiting for transport upstairs.
--- NOTE | 2022-06-10 16:12 | PM.EVENT ---
Event Note Date of Service: 06/10/22 Event Note: GI Consult-Full note dictated-history via patient, girlfriend, and EMR Imp: 57 yo healthy male describing approximately 1 week of progressive lower abdominal pains, diarrhea with associated urgency and tenesmus > 10 times a day, anorexia, weakness, and lightheadedness. Denies any signs of bleeding nor any definitive fevers or chills. He describes some mild nausea but no vomiting. Denies previous history of GI problems in himself, nor family history of IBD or colorectal cancer. He has never had a colonoscopy. He denies any recent travel, ill contacts, antibiotic use, NSAIDs use, nor any new meds. He denies any history of liver disease in himself nor his family. He describes a daily habit of or 3-4 drinks per day after work. His labs reveal elevated liver enzymes c/w effect from EtOH. He has an abnormal CT of abdomen c/w a long segment of abnormal appearing colon most c/w probable colitis or diverticulitis, as well as an abnormal liver with hepatomegaly/fatty infiltration, although radiologist can't R/O a mass. Diff dx: Infectious colitis, diverticulitis, inflammatory bowel disease; doubt ischemic colitis. EtOH associated liver disease. Rec: Supportive care and antibiotics. Given CT findings with possible microperforation, I would hold off on a colonoscopy for at least 1 month, but I did advise him that we will definitely want to arrange that as an outpatient. Check stool specimens to R/O infection. Advance diet as per surgery. F/U labs in AM with a limited liver w/u. MRI of liver before discharge with checking of AFP and CEA levels. D/W patient and girlfriend in detail. They are comfortable with this plan. Thanks
[2022-06-10] MEDS: cefTRIAXone sodium 1 GM in 0.9 % Sodium Chloride 50 ML IV (22:46)
[2022-06-10] MEDS: Enoxaparin Sodium 40 MG/0.4 ML SYRINGE SUBCUT (22:47)
[2022-06-10 23:46] VITALS: BP 134/81; PULSE 68; RESP 17; TEMP 36.7; O2SAT 97
--- NOTE | 2022-06-11 01:05 | CONS_ITS ---
DATE OF SERVICE: 06/10/2022 REASON FOR CONSULTATION: Abdominal pain, diarrhea, and abnormal CT scan of colon and liver. HISTORY OF PRESENT ILLNESS: This has been obtained from the patient, his girlfriend, and the medical record. The patient is a 57-year-old generally healthy male, who describes about 1 week of persistent and progressive symptoms including a lower abdominal pain, diarrhea, anorexia, and lightheadedness. Prior to that he had been feeling well, both generally and from a GI standpoint. He describes his bowel movement pattern is typically very regular and without any problems such as diarrhea, constipation, nor bleeding. He enjoys a good appetite without any significant heartburn nor dysphagia. He denies any chronic abdominal pain. Due to the progression of the symptoms, he finally came to the ER where a CT scan found an abnormal segment of colon and he was admitted for further evaluation. The patient describes during this 1 week of abdominal discomfort and diarrhea that he was having upwards of 10 loose stools per day with associated urgency. He never saw any bleeding. He denies any definitive fevers nor chills. He was anorectic and had some mild nausea, but there was no vomiting. He denies any jaundice. Prior to this, he denies any ill contacts, travel, nor antibiotic use. He has not been on any new medication nor does he use any regular NSAIDs. He has never had a colonoscopy. He denies any known family history of colorectal cancer nor inflammatory bowel disease. Since admission here, he does report that he has been feeling much better after 24 hours of antibiotics. He is no longer having any abdominal pain. He has had some small loose stools. He has been tolerating some liquids. He denies any previous history of liver disease in himself nor family members. He denies any jaundice. He does describe having 3 or 4 drinks per day after work. MEDICATIONS: At home, allopurinol. Medications here in the hospital include allopurinol, IV ceftriaxone, Lovenox, p.o. Flagyl, Zofran p.r.n., oxycodone p.r.n. PAST MEDICAL HISTORY: Tonsillectomy. He denies any other surgeries. Gout. He denies any medical problems such as heart disease, diabetes or stroke. 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 He denies tobacco. He describes 3 or 4 drinks per day after work. He is single, but has a girlfriend. FAMILY HISTORY: Noncontributory. REVIEW OF SYSTEMS: CONSTITUTIONAL: Prior to the past week or so, he had been feeling well with good energy, good appetite. SKIN: No rash. No pruritus. CARDIAC: No chest pain. PULMONARY: No cough. No hemoptysis. GI: As above. URINARY: No dysuria, hematuria. PHYSICAL EXAMINATION: GENERAL: The patient is a pleasant, alert, comfortable appearing male. SKIN: Warm and dry. He has been afebrile. No spider angiomata. CHEST: Clear. CARDIAC: Tones S2. ABDOMEN: Soft, nondistended. Normal bowel sounds and nontender. There is no palpable organomegaly. EXTREMITIES: Without edema. LABORATORY DATA: White blood cell count 8.7, hemoglobin 13.8, platelets 215,000, normal differential. PT 10.8 with INR 0.9. Normal electrolytes other than a potassium 2.9. BUN 9, creatinine 0.8. Total bilirubin is 1.2, direct bilirubin 0.6, AST 159, ALT 55, alkaline phosphatase 85, albumin 3.5. He was COVID negative. Chest x-ray was negative. CT scan of the abdomen and pelvis describes hepatomegaly with probable steatosis with some heterogeneous changes throughout the liver, probably representing fatty liver, although the radiologist recommended an MRI to rule out any masses. His colon is notable for a long segment of thickening in the sigmoid and rectal wall with inflammatory fat stranding, raising suspicion of either bowel wall ischemia, acute diverticulitis, or colitis. There was a small pocket of possible gas between the rectum and sigmoid colon suspicious for a possible microperforation but there was no sign of any abscess nor fluid. IMPRESSION: In regard to his GI symptoms and abnormal CT scan, I would be most concerned about some type of possible colitis given the week or so history of diarrhea and urgency and the CT findings with a relatively long segment of abnormality. This could represent an infectious colitis, ischemic colitis, or possible inflammatory bowel disease. This could represent diverticulitis as mentioned, although the description on the CT scan is somewhat atypical. 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 At this point, he appears clinically well and his abdominal exam is benign. As such, I would continue the current plan of antibiotics and dietary restriction. I would certainly hold off on colonoscopy given the CT scan findings with possible micro-perforation, but I did review with the patient in detail that he will need an eventual colonoscopy for definitive evaluation in a month or 2. I would also check stool specimens at this time to rule out any type of enteric infection. I will continue supportive care and antibiotics otherwise. I think his diet can be advanced as tolerated as long as things remain stable. I have ordered followup laboratories in the morning with a limited liver workup as well. I have also ordered MRI of the liver and will check an alpha fetoprotein level and CEA level. This has all been discussed with the patient and his girlfriend in detail. They are comfortable with this plan. Thank you for the consultation. MD NASREEN Sal/PAOLO / [id number] MTDD
[2022-06-11 03:49] VITALS: BP 125/72; PULSE 84; RESP 17; TEMP 36.3; O2SAT 97
[2022-06-11 06:48] LABS: MANUAL DIFF FLAG NO
[2022-06-11 06:51] LABS: Basophils Absolute Auto 0.1 X10*3/uL (0.0-0.2); Basophils Percent Auto 0.8 % (0-2); Eosinophils Absolute Auto 0.1 X10*3/uL (0.0-0.4); Eosinophils Percent Auto 1.1 % (0-4); Hematocrit 39.6 % (42.0-52.0); Hemoglobin 14.4 g/dl (14.0-18.0); Imm Gran Abs Auto 0.01 X10*3/uL (0.00-0.03); Imm Gran Pct Auto 0.2 % (0.0-0.4); Lymphocytes Absolute Auto 1.7 X10*3/uL (1.2-4.9); Lymphocytes Percent Auto 27.3 % (20-40); Mean Corpuscular HGB Conc 36.4 g/dl (31.0-36.0); Mean Corpuscular Hemoglobin 33.9 pg (27.0-33.0); Mean Corpuscular Volume 93.2 fL (80.0-98.0); Monocytes Absolute Auto 0.7 X10*3/uL (0.1-1.2); Monocytes Percent Auto 11.9 % (2-11); Neutrophils Absolute Auto 3.7 x10*3/uL (2.0-8.3); Neutrophils Percent Auto 58.7 % (45-73); Platelet Count 222 X10*3/uL (160-400); Red Blood Count 4.25 X10*6/uL (4.60-5.80); White Blood Count 6.2 X10*3/uL (4.8-10.8)
[2022-06-11 07:11] VITALS: BP 109/64; PULSE 85; RESP 18; TEMP 36.1; O2SAT 98
[2022-06-11 07:26] LABS: Alanine Aminotransferase 50 U/L (0-40); Albumin Level 3.6 g/dL (3.5-5.0); Alkaline Phosphatase 80 U/L (39-117); Anion Gap 15 (12-20); Aspartate Amino Transferase 119 U/L (5-37); Bilirubin Direct 0.6 mg/dL (0.0-0.5); Bilirubin Total 1.2 mg/dL (0.0-1.0); Blood Urea Nitrogen 5 mg/dL (9-16); C Reactive Protein 0.15 mg/dL (< or = 0.50); Calcium 8.1 mg/dL (8.4-10.2); Carbon Dioxide 25 mmol/L (22-29); Chloride 104 mmol/L (96-108); Creatinine Clr Calc Pharmacy 111.3; Estimated Glomerular Filt Rate > 60; Glucose Fasting 93 mg/dL (60-99); Iron 113 mcg/dL (45-160); Percent Iron Saturation 49 % (15-50); Sodium 141 mmol/L (135-145); Total Iron Binding Capacity 230 mcg/dL (228-428); Total Protein 6.7 g/dL (6.5-8.0); Unsaturated Iron Binding 117 ug/dL
[2022-06-11 07:38] LABS: Ferritin 579 ng/mL (20-250)
[2022-06-11 07:51] LABS: Erythrocyte Sedimentation Rate 9 MM/HR (0-15)
[2022-06-11] MEDS: 0.9 % Sodium Chloride Flush 3 ML SYRINGE IVFLUSH ×3 (09:15→23:49)
[2022-06-11] MEDS: metroNIDAZOLE 500 MG TABLET PO ×3 (09:15→23:51)
[2022-06-11] MEDS: allopurinoL 300 MG TABLET PO (09:15)
--- NOTE | 2022-06-11 09:43 | HO.PM.IMPN ---
Subjective Subjective Date of Service: 06/11/22 Interval History: Acute diverticulitis, elevated LFTs Review of Systems ?has Still mid abdominal soreness . denies nausea, vomiting, fever or chills Physical Exam Vital Signs: Vital Signs: Last Vital Signs Temp 97 F 06/11/22 07:11 Pulse 85 06/11/22 07:11 Resp 18 06/11/22 07:11 BP 109/64 06/11/22 07:11 Pulse Ox 98 06/11/22 07:11 O2 Del Method 06/11/22 07:11 BMI result Body Mass Index 21.6 Appearance: Alert.? Oriented X3.? not in distress.?. cvs: rrr, [id number] , no murmur res: clear to auscultation ,no rhonchii or wheezing abd: no rebound or guarding ,mid abd soarness ,nd , bs present. ext pulses present , no cyanosis. neuro: axo3 , nonfocal. Objective Data Active Medications Acetaminophen (Acetaminophen 325 Mg Tablet) 650 mg PO Q6H PRN PRN Reason: Pain, Mild (Pain Scale 1-3) Allopurinol (Allopurinol 300 Mg Tablet) 300 mg PO DAILY [facility] Last Admin: 06/11/22 09:15 Dose: 300 mg Documented By: JOVAN Docusate Sodium (Docusate Sodium 100 Mg Capsule) 100 mg PO DAILY PRN PRN Reason: Constipation Enoxaparin Sodium (Enoxaparin Sodium 40 Mg/0.4 Ml Syringe) 40 mg SUBCUT Q24H [facility] Last Admin: 06/10/22 22:47 Dose: 40 mg Documented By: ARA Ceftriaxone Sodium 1 gm/ (Sodium Chloride) 50 mls @ 100 mls/hr IV Q24H [facility] Last Infusion: 06/10/22 23:26 Dose: 0 mls/hr Documented By: ARA Metronidazole (Metronidazole 500 Mg Tablet) 500 mg PO Q8H [facility] Last Admin: 06/11/22 09:15 Dose: 500 mg Documented By: JOVAN Ondansetron HCl (Ondansetron Hcl 4 Mg/2 Ml Vial) 4 mg IVPUSH Q8H PRN PRN Reason: Nausea and Vomiting Oxycodone HCl (Oxycodone Hcl Immed Release 5 Mg Tablet) 5 mg PO Q6H PRN PRN Reason: Pain, Severe (Pain Scale 7-10) Sodium Chloride (0.9 % Sodium Chloride Flush 3 Ml Syringe) 3 ml IVFLUSH QSHIFT [facility] Last Admin: 06/11/22 09:15 Dose: 3 ml Documented By: JOVAN Labs CBC & Chem 7: 06/11/22 05:54 06/11/22 05:54 Labs: Laboratory Results - last 24 hr 06/10/22 06/11/22 06/11/22 06:22 05:54 05:54 MCV 93.2 MCH 33.9 H MCHC 36.4 H RDW 13.0 Plt Count 222 MPV 10.0 Immature Gran % (Auto) 0.2 Neut % (Auto) 58.7 Lymph % (Auto) 27.3 [place] % (Auto) 11.9 H Eos % (Auto) 1.1 Baso % (Auto) 0.8 Lymph # (Auto) 1.7 [place] # (Auto) 0.7 Eos # (Auto) 0.1 Baso # (Auto) 0.1 Abs Immat Gran (auto) 0.01 Absolute Neuts (auto) 3.7 Absolute Nucleated RBC 0.000 Nucleated RBC % (auto) 0.0 ESR 9 Anion Gap Estim Creat Clear Calc Estimated GFR Fasting Glucose Calcium Iron TIBC % Saturation Unsat Iron Binding Ferritin Total Bilirubin Direct Bilirubin AST ALT Alkaline Phosphatase Lactate Dehydrogenase 245 C-Reactive Protein Total Protein Albumin Carcinoembryonic Ag 06/11/22 06/11/22 05:54 05:54 MCV MCH MCHC RDW Plt Count MPV Immature Gran % (Auto) Neut % (Auto) Lymph % (Auto) [place] % (Auto) Eos % (Auto) Baso % (Auto) Lymph # (Auto) [place] # (Auto) Eos # (Auto) Baso # (Auto) Abs Immat Gran (auto) Absolute Neuts (auto) Absolute Nucleated RBC Nucleated RBC % (auto) ESR Anion Gap 15 Estim Creat Clear Calc 111.3 Estimated GFR > 60 Fasting Glucose 93 Calcium 8.1 L Iron 113 TIBC 230 % Saturation 49 Unsat Iron Binding 117 Ferritin 579 H Total Bilirubin 1.2 H Direct Bilirubin 0.6 H AST 119 H ALT 50 H Alkaline Phosphatase 80 Lactate Dehydrogenase C-Reactive Protein 0.15 Total Protein 6.7 Albumin 3.6 Carcinoembryonic Ag 4.60 Microbiology Microbiology Results: Microbiology 06/09/22 22:21 Blood Culture - Preliminary Blood - Venous No growth after 24 hours. 06/09/22 22:21 Blood Culture - Preliminary Blood - Venous No growth after 24 hours. Assessment and Plan (1) Acute diverticulitis: Status: Acute (2) Acute hypokalemia: Status: Acute Plan 57-year-old male with past medical history of gout, lower diagnosed hypertension presents to the hospital with a hypertensive episode at GI doctor office found to have possible diverticulitis acute diverticulitis with micro perforation - has significant abnormality of abdominal CT as seen above - no leukocytosis, afebrile, normal lactic acid - will treat with IV antibiotics - IV fluids - GI and general surgery consulted as he has significantly abdomen abdominal CT-started on clear , afp,cea added mri added formeleavted lft's and abnormal lfts colonoscopy outpatient in [address] - showing possible enteritis versus pancolitis versus ileus as well as possible bowel wall ischemia - IV antibiotics started - IV fluids elevated liver function tests andHepatomegaly and hepatic steatosis. Slightly heterogeneous attenuation throughout the liver, which could be due to heterogeneous fatty infiltration on ct scan: lft's trend improving ,a dd hepatitis screen also MRI abd . hypomagnesemia and hypokalemia: repleted IV and p.o. magnesium, also added p.o. potassium. gout - continue allopurinol hypokalemia : added potassium DVT prophylaxis: Lovenox inpatient need :acute diverticulitis with micro perforation-need iv antibiotics , need liver dis workup, Electrolyte abnormalities. Quality Stroke Does the patient have a stroke diagnosis?: No VTE Prior VTE?: No VTE Risk Level:: Medical - moderate - high VTE Device Contraindication: Treatment Not Indicated VTE Drug Contraindication: N/A - Med Ordered
--- NOTE | 2022-06-11 10:26 | MHC.CM.PN ---
EMR REVIEWED, PT ADMITTED W/DIVERTICULITIS, PLAN FOR MRI SUNDAY AND IF NORMAL WILL ADVANCE DIET. CM MET W/PT WHO REPORTS HE WORKS, IS INDEPENDANT W/ALL CARE, PT DENIES USE OF DME/HOME SERVICES, PT VERIFIES PFIZER X3, LAST 2 PCP'S HAVE RETIRED AND HAS NEW PCP APPT W/SURESH BARBA AT [facility] 08/08, PT REPORTS HE ALSO HAS COMPLETED A HCP SISTER ACE BIMAL [phone]. D/C PLAN WILL BE HOME NO SERVICES W/S.O. FOR TRANSPORT
[2022-06-11 11:07] VITALS: BP 142/82; PULSE 85; RESP 18; TEMP 36.6; O2SAT 97
[2022-06-11] MEDS: Magnesium Sulfate/D5W 1 GM/100 ML PIGGYBACK IV (11:23)
[2022-06-11] MEDS: Potassium Chloride Packet 20 MEQ PACKET 40 MEQ PO (11:23)
--- NOTE | 2022-06-11 13:29 | PM.PNGS ---
Subjective Subjective Date of Service: 06/11/22 Interval history: Denies abdominal pain Says he feels well Tolerating clear liquids Physical Exam Vital Signs: Vital Signs: Last Vital Signs Temp 97.8 F 06/11/22 11:07 Pulse 85 06/11/22 11:07 Resp 18 06/11/22 11:07 BP 142/82 H 06/11/22 11:07 Pulse Ox 97 06/11/22 11:07 O2 Del Method 06/11/22 11:07 BMI result Body Mass Index 21.6 Const: General: comfortable and no acute distress Eyes: Sclerae: sclerae normal Resp: Effort & Inspection: normal respiratory effort Cardio: Rhythm: regular rhythm GI: Palpation (GI): Soft to palpation, not firm, nontender and no guarding Objective Data Active Medications Acetaminophen (Acetaminophen 325 Mg Tablet) 650 mg PO Q6H PRN PRN Reason: Pain, Mild (Pain Scale 1-3) Allopurinol (Allopurinol 300 Mg Tablet) 300 mg PO DAILY [facility] Last Admin: 06/11/22 09:15 Dose: 300 mg Documented By: JOVAN Docusate Sodium (Docusate Sodium 100 Mg Capsule) 100 mg PO DAILY PRN PRN Reason: Constipation Enoxaparin Sodium (Enoxaparin Sodium 40 Mg/0.4 Ml Syringe) 40 mg SUBCUT Q24H [facility] Last Admin: 06/10/22 22:47 Dose: 40 mg Documented By: ARA Ceftriaxone Sodium 1 gm/ (Sodium Chloride) 50 mls @ 100 mls/hr IV Q24H [facility] Last Infusion: 06/10/22 23:26 Dose: 0 mls/hr Documented By: ARA Magnesium Oxide (Magnesium Oxide 400 Mg Tablet) 400 mg PO BIDPC [facility] Metronidazole (Metronidazole 500 Mg Tablet) 500 mg PO Q8H [facility] Last Admin: 06/11/22 09:15 Dose: 500 mg Documented By: JOVAN Ondansetron HCl (Ondansetron Hcl 4 Mg/2 Ml Vial) 4 mg IVPUSH Q8H PRN PRN Reason: Nausea and Vomiting Oxycodone HCl (Oxycodone Hcl Immed Release 5 Mg Tablet) 5 mg PO Q6H PRN PRN Reason: Pain, Severe (Pain Scale 7-10) Sodium Chloride (0.9 % Sodium Chloride Flush 3 Ml Syringe) 3 ml IVFLUSH QSHIFT [facility] Last Admin: 06/11/22 09:15 Dose: 3 ml Documented By: JOVAN Labs CBC & Chem 7: 06/11/22 05:54 06/11/22 05:54 Labs: Laboratory Results - last 24 hr 06/11/22 06/11/22 06/11/22 05:54 05:54 05:54 MCV 93.2 MCH 33.9 H MCHC 36.4 H RDW 13.0 Plt Count 222 MPV 10.0 Immature Gran % (Auto) 0.2 Neut % (Auto) 58.7 Lymph % (Auto) 27.3 [place] % (Auto) 11.9 H Eos % (Auto) 1.1 Baso % (Auto) 0.8 Lymph # (Auto) 1.7 [place] # (Auto) 0.7 Eos # (Auto) 0.1 Baso # (Auto) 0.1 Abs Immat Gran (auto) 0.01 Absolute Neuts (auto) 3.7 Absolute Nucleated RBC 0.000 Nucleated RBC % (auto) 0.0 ESR 9 Anion Gap 15 Estim Creat Clear Calc 111.3 Estimated GFR > 60 Fasting Glucose 93 Calcium 8.1 L Iron 113 TIBC 230 % Saturation 49 Unsat Iron Binding 117 Ferritin 579 H Total Bilirubin 1.2 H Direct Bilirubin 0.6 H AST 119 H ALT 50 H Alkaline Phosphatase 80 C-Reactive Protein 0.15 Total Protein 6.7 Albumin 3.6 Carcinoembryonic Ag 06/11/22 05:54 MCV MCH MCHC RDW Plt Count MPV Immature Gran % (Auto) Neut % (Auto) Lymph % (Auto) [place] % (Auto) Eos % (Auto) Baso % (Auto) Lymph # (Auto) [place] # (Auto) Eos # (Auto) Baso # (Auto) Abs Immat Gran (auto) Absolute Neuts (auto) Absolute Nucleated RBC Nucleated RBC % (auto) ESR Anion Gap Estim Creat Clear Calc Estimated GFR Fasting Glucose Calcium Iron TIBC % Saturation Unsat Iron Binding Ferritin Total Bilirubin Direct Bilirubin AST ALT Alkaline Phosphatase C-Reactive Protein Total Protein Albumin Carcinoembryonic Ag 4.60 Microbiology Microbiology Results: Microbiology 06/09/22 22:21 Blood Culture - Preliminary Blood - Venous No growth after 24 hours. 06/09/22 22:21 Blood Culture - Preliminary Blood - Venous No growth after 24 hours. Procedures Date of Service Date of Service: 06/11/22 Progress Note: A&P Assessment and plan (1) Acute diverticulitis: Status: Acute Assessment and Plan: His exam remains very benign. He does not have any significant pain or tenderness. May try to advance his diet to full liquids His IV antibiotics should be continued. He is also supposed to have an MRI to rule out a possible liver lesion seen on CT scan. I will continue to follow along while he is in the hospital. He looks well otherwise. Time Spent With Patient Time: Total time spent is greater than 50% in coordination of care (as documented) at patient's floor/unit and/or counseling patient: Quality Stroke Does the patient have a stroke diagnosis?: No VTE Prior VTE?: No VTE Risk Level:: Medical - moderate - high VTE Device Contraindication: Treatment Not Indicated VTE Drug Contraindication: N/A - Med Ordered
[2022-06-11 15:07] LABS: CDiff Gene PCR NEGATIVE (Negative)
[2022-06-11 15:37] VITALS: BP 137/75; PULSE 63; RESP 18; TEMP 37.2; O2SAT 97
[2022-06-11] MEDS: Acetaminophen 325 MG TABLET 650 MG PO ×2 (15:41→23:00)
[2022-06-11] MEDS: Magnesium Oxide 400 MG TABLET PO (18:49)
[2022-06-11 21:15] VITALS: BP 127/69; PULSE 63; RESP 16; TEMP 36.4; O2SAT 98
[2022-06-11] MEDS: cefTRIAXone sodium 1 GM in 0.9 % Sodium Chloride 50 ML IV (22:54)
[2022-06-11] MEDS: Enoxaparin Sodium 40 MG/0.4 ML SYRINGE SUBCUT (22:55)
[2022-06-11 23:24] VITALS: BP 130/77; PULSE 73; RESP 16; TEMP 36.7; O2SAT 97
--- NOTE | 2022-06-12 00:07 | PM.GIPN ---
Subjective Subjective Date of Service: 06/11/22 Interval History: Patient seen at 5PM on 06/11. He reports feeling much better. Denies abdominal pain. Tolerating full liquids. Had 2 or 3 loose stools today. Denies bleeding, N/V. Critical Care Time (minutes): 0 Physical Exam Vital Signs: Vital Signs: Last Vital Signs Temp 98.1 F 06/11/22 23:24 Pulse 73 06/11/22 23:24 Resp 16 06/11/22 23:24 BP 130/77 06/11/22 23:24 Pulse Ox 97 06/11/22 23:24 O2 Del Method 06/11/22 23:24 BMI result Body Mass Index 21.6 Const: General: cooperative, healthy appearing, comfortable, no acute distress, well developed and alert GI: Other: +BS, Soft, NT, Nondistended. Objective Data Labs CBC & Chem 7: 06/11/22 05:54 06/11/22 05:54 Labs: Laboratory Results - last 24 hr 06/11/22 06/11/22 06/11/22 05:54 05:54 05:54 WBC 6.2 RBC 4.25 L Hgb 14.4 Hct 39.6 L MCV 93.2 MCH 33.9 H MCHC 36.4 H RDW 13.0 Plt Count 222 MPV 10.0 Immature Gran % (Auto) 0.2 Neut % (Auto) 58.7 Lymph % (Auto) 27.3 [place] % (Auto) 11.9 H Eos % (Auto) 1.1 Baso % (Auto) 0.8 Lymph # (Auto) 1.7 [place] # (Auto) 0.7 Eos # (Auto) 0.1 Baso # (Auto) 0.1 Abs Immat Gran (auto) 0.01 Absolute Neuts (auto) 3.7 Absolute Nucleated RBC 0.000 Nucleated RBC % (auto) 0.0 ESR 9 Sodium 141 Potassium 3.0 L Chloride 104 Carbon Dioxide 25 Anion Gap 15 BUN 5 L Creatinine 0.77 Estim Creat Clear Calc 111.3 Estimated GFR > 60 Fasting Glucose 93 Calcium 8.1 L Iron 113 TIBC 230 % Saturation 49 Unsat Iron Binding 117 Ferritin 579 H Total Bilirubin 1.2 H Direct Bilirubin 0.6 H AST 119 H ALT 50 H Alkaline Phosphatase 80 C-Reactive Protein 0.15 Total Protein 6.7 Albumin 3.6 Carcinoembryonic Ag C. difficile Tox B Gene 06/11/22 06/11/22 05:54 13:39 WBC RBC Hgb Hct MCV MCH MCHC RDW Plt Count MPV Immature Gran % (Auto) Neut % (Auto) Lymph % (Auto) [place] % (Auto) Eos % (Auto) Baso % (Auto) Lymph # (Auto) [place] # (Auto) Eos # (Auto) Baso # (Auto) Abs Immat Gran (auto) Absolute Neuts (auto) Absolute Nucleated RBC Nucleated RBC % (auto) ESR Sodium Potassium Chloride Carbon Dioxide Anion Gap BUN Creatinine Estim Creat Clear Calc Estimated GFR Fasting Glucose Calcium Iron TIBC % Saturation Unsat Iron Binding Ferritin Total Bilirubin Direct Bilirubin AST ALT Alkaline Phosphatase C-Reactive Protein Total Protein Albumin Carcinoembryonic Ag 4.60 C. difficile Tox B Gene NEGATIVE Microbiology Microbiology Results: Microbiology 06/09/22 22:21 Blood - Venous Blood Culture - Preliminary No growth after 24 hours. 06/09/22 22:21 Blood - Venous Blood Culture - Preliminary No growth after 24 hours. Procedures Date of Service Date of Service: 06/11/22 Progress Note: A&P Assessment and plan (1) Abdominal pain: Status: Acute Assessment and Plan: IMP: He is much improved and is now asymptomatic. Differential diagnosis is acute colitis vs diverticulitis. REC: Continue antibiotics, advance diet as tolerated, colonoscopy as an outpatient in 1-2 months. (2) Alcoholic liver disease: Status: Acute Assessment and Plan: IMP: LFT's stable, no sign of worsening liver function REC: Scheduled for liver MRI 8/1 AM, F/U labs. 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 Time Spent With Patient Time: Total time spent is greater than 50% in coordination of care (as documented) at patient's floor/unit and/or counseling patient: Quality Stroke Does the patient have a stroke diagnosis?: No VTE Prior VTE?: No VTE Risk Level:: Medical - moderate - high VTE Device Contraindication: Treatment Not Indicated VTE Drug Contraindication: N/A - Med Ordered
[2022-06-12 03:17] VITALS: BP 112/57; PULSE 75; RESP 18; TEMP 36.2; O2SAT 97
[2022-06-12 04:37] LABS: HBc Num1 0.09 S/CO (0.00-0.79); Hepatitis B Core Antibody Nonreactive (Nonreactive); Hepatitis B Surface Antigen Negative (Negative); ~Hepatitis B Surface Antibody NONREACTIVE (Nonreactive); ~Hepatitis C Antibody Nonreactive (Nonreactive)
[2022-06-12 06:12] LABS: Anion Gap 14 (12-20); Blood Urea Nitrogen 5 mg/dL (9-16); Calcium 8.3 mg/dL (8.4-10.2); Carbon Dioxide 25 mmol/L (22-29); Chloride 104 mmol/L (96-108); Creatinine Clr Calc Pharmacy 112.8; Estimated Glomerular Filt Rate > 60; Glucose Random 90 mg/dL (60-115); Potassium 3.1 mmol/L (3.3-5.1); Sodium 140 mmol/L (135-145)
[2022-06-12 07:21] LABS: Adenovirus F 40/41 Not Detected (Not Detect.); Astrovirus Not Detected (Not Detect.); Campylobacter Not Detected (Not Detect.); Cryptosporidium Not Detected (Not Detect.); Cyclospora cayetanensis Not Detected (Not Detect.); E. coli EAEC Not Detected (Not Detect.); E. coli EPEC Not Detected (Not Detect.); E. coli ETEC Not Detected (Not Detect.); E. coli STEC Not Detected (Not Detect.); Entamoeba histolytica Not Detected (Not Detect.); Giardia lamblia Not Detected (Not Detect.); Norovirus GI/GII Not Detected (Not Detect.); Plesiomonas shigelloides Not Detected (Not Detect.); Rotavirus A Not Detected (Not Detect.); Salmonella Not Detected (Not Detect.); Sapovirus Not Detected (Not Detect.); Shigella sp./EIEC Not Detected (Not Detect.); Vibrio Not Detected (Not Detect.); Vibrio Cholerae Not Detected (Not Detect.); Yersinia enterocolitica Not Detected (Not Detect.)
[2022-06-12 07:56] VITALS: BP 115/71; PULSE 65; RESP 16; TEMP 36.4; O2SAT 96
[2022-06-12] MEDS: Magnesium Oxide 400 MG TABLET PO ×2 (09:04→17:18)
[2022-06-12] MEDS: metroNIDAZOLE 500 MG TABLET PO ×3 (09:05→23:40)
[2022-06-12] MEDS: 0.9 % Sodium Chloride Flush 3 ML SYRINGE IVFLUSH ×3 (09:05→23:40)
[2022-06-12] MEDS: Potassium Chloride/H20 10 MEQ/100 ML PIGGYBACK 100 MEQ IV (09:05)
[2022-06-12] MEDS: allopurinoL 300 MG TABLET PO (09:05)
[2022-06-12] MEDS: Acetaminophen 325 MG TABLET 650 MG PO ×2 (09:05→19:59)
[2022-06-12 11:21] VITALS: BP 125/73; PULSE 65; RESP 18; TEMP 37; O2SAT 98
[2022-06-12] MEDS: Potassium Chloride Packet 20 MEQ PACKET 40 MEQ PO (12:15)
--- NOTE | 2022-06-12 15:22 | HO.PM.IMPN ---
Subjective Subjective Date of Service: 06/12/22 Interval History: Acute diverticulitis, elevated LFTs Review of Systems mid abdominal soreness . denies nausea, vomiting, fever or chills Physical Exam Vital Signs: Vital Signs: Last Vital Signs Temp 98.6 F 06/12/22 11:21 Pulse 65 06/12/22 11:21 Resp 18 06/12/22 11:21 BP 125/73 06/12/22 11:21 Pulse Ox 98 06/12/22 11:21 O2 Del Method 06/12/22 11:21 BMI result Body Mass Index 21.6 Appearance: Alert.? Oriented X3.? not in distress.?. cvs: rrr, [id number] , no murmur res: clear to auscultation ,no rhonchii or wheezing abd: no rebound or guarding ,mid abd soarness ,nd , bs present. ext pulses present , no cyanosis. neuro: axo3 , nonfocal. Objective Data Active Medications Acetaminophen (Acetaminophen 325 Mg Tablet) 650 mg PO Q6H PRN PRN Reason: Pain, Mild (Pain Scale 1-3) Last Admin: 06/12/22 09:05 Dose: 650 mg Documented By: VALENTINO Allopurinol (Allopurinol 300 Mg Tablet) 300 mg PO DAILY [facility] Last Admin: 06/12/22 09:05 Dose: 300 mg Documented By: VALENTINO Docusate Sodium (Docusate Sodium 100 Mg Capsule) 100 mg PO DAILY PRN PRN Reason: Constipation Enoxaparin Sodium (Enoxaparin Sodium 40 Mg/0.4 Ml Syringe) 40 mg SUBCUT Q24H [facility] Last Admin: 06/11/22 22:55 Dose: 40 mg Documented By: GENA Ceftriaxone Sodium 1 gm/ (Sodium Chloride) 50 mls @ 100 mls/hr IV Q24H [facility] Last Infusion: 06/11/22 23:27 Dose: 0 mls/hr Documented By: GENA Magnesium Oxide (Magnesium Oxide 400 Mg Tablet) 400 mg PO BIDPC [facility] Last Admin: 06/12/22 09:04 Dose: 400 mg Documented By: VALENTINO Metronidazole (Metronidazole 500 Mg Tablet) 500 mg PO Q8H [facility] Last Admin: 06/12/22 09:05 Dose: 500 mg Documented By: VALENTINO Ondansetron HCl (Ondansetron Hcl 4 Mg/2 Ml Vial) 4 mg IVPUSH Q8H PRN PRN Reason: Nausea and Vomiting Oxycodone HCl (Oxycodone Hcl Immed Release 5 Mg Tablet) 5 mg PO Q6H PRN PRN Reason: Pain, Severe (Pain Scale 7-10) Sodium Chloride (0.9 % Sodium Chloride Flush 3 Ml Syringe) 3 ml IVFLUSH QSHIFT [facility] Last Admin: 06/12/22 09:05 Dose: 3 ml Documented By: VALENTINO Labs CBC & Chem 7: 06/11/22 05:54 06/12/22 05:41 Labs: Laboratory Results - last 24 hr 06/11/22 06/11/22 06/12/22 05:54 13:39 05:41 Anion Gap 14 Estim Creat Clear Calc 112.8 Estimated GFR > 60 Random Glucose 90 Calcium 8.3 L Magnesium 2.0 Stl C. cayetanensis PCR Not Detected Stool Rotavirus A PCR Not Detected Stl Adenov F 40/41 PCR Not Detected Stool Astrovirus (PCR) Not Detected Stool Campylobacter PCR Not Detected Stool Cryptosporidium PCR Not Detected Stl Sh Tox Pr E STEC PCR Not Detected Stool E coli O157 PCR Not applicable Stl Enterotoxigenic E PCR Not Detected Stool EPEC (PCR) Not Detected Stool EAEC (PCR) Not Detected Stl E. histolytica PCR Not Detected Stool Giardia Lamblia PCR Not Detected Stl P. shigelloides PCR Not Detected Stool Salmonella PCR Not Detected Stool Sapovirus (PCR) Not Detected Stl Shigella/EIEC PCR Not Detected St Y.enterocolitica PCR Not Detected Stool Vibrio (PCR) Not Detected Stl Vibrio cholerae PCR Not Detected Stl Norovirus GI/GII PCR Not Detected Hep Bs Antigen Negative Hep Bs Antibody NONREACTIVE Hep B Core Total Ab Nonreactive Hepatitis C Ab (EIA) Nonreactive Microbiology Microbiology Results: Microbiology 06/09/22 22:21 Blood Culture - Preliminary Blood - Venous No growth after 48 hours. 06/09/22 22:21 Blood Culture - Preliminary Blood - Venous No growth after 48 hours. Assessment and Plan (1) Acute diverticulitis: Status: Acute (2) Acute hypokalemia: Status: Acute Plan 57-year-old male with past medical history of gout, lower diagnosed hypertension presents to the hospital with a hypertensive episode at GI doctor office found to have possible diverticulitis acute diverticulitis with micro perforation - has significant abnormality of abdominal CT as seen above - no leukocytosis, afebrile, normal lactic acid - will treat with IV antibiotics - IV fluids - GI and general surgery consulted as he has significantly abdomen abdominal CT-started on clear , afp,cea added mri added -due to eleavted lft's and abnormal ct scan(Hepatomegaly and hepatic steatosis. Slightly heterogeneous attenuation throughout the liver, which could be due to heterogeneous fatty infiltration) colonoscopy outpatient in [address] - showing possible enteritis versus pancolitis versus ileus as well as possible bowel wall ischemia - IV antibiotics started - IV fluids elevated liver function tests andHepatomegaly and hepatic steatosis. Slightly heterogeneous attenuation throughout the liver, which could be due to heterogeneous fatty infiltration on ct scan: lft's trend improving ,a dd hepatitis screen also MRI abd . hypomagnesemia and hypokalemia: repleted IV and p.o. magnesium, also added p.o. potassium. gout - continue allopurinol hypokalemia : added potassium DVT prophylaxis: Lovenox inpatient need :acute diverticulitis with micro perforation-need iv antibiotics , need liver dis workup, Electrolyte abnormalities. Quality Stroke Does the patient have a stroke diagnosis?: No VTE Prior VTE?: No VTE Risk Level:: Medical - moderate - high VTE Device Contraindication: Treatment Not Indicated VTE Drug Contraindication: N/A - Med Ordered
[2022-06-12 16:00] VITALS: BP 143/75; PULSE 66; RESP 15; TEMP 36.3; O2SAT 97
[2022-06-12 20:00] VITALS: BP 130/69; PULSE 78; RESP 18; TEMP 36.8; O2SAT 97
[2022-06-12] MEDS: cefTRIAXone sodium 1 GM in 0.9 % Sodium Chloride 50 ML IV (23:06)
[2022-06-12] MEDS: Enoxaparin Sodium 40 MG/0.4 ML SYRINGE SUBCUT (23:06)
[2022-06-12 23:37] VITALS: BP 119/70; PULSE 57; RESP 18; TEMP 36.3; O2SAT 96
[2022-06-13 03:39] VITALS: BP 132/70; PULSE 72; RESP 18; TEMP 36.9; O2SAT 97
[2022-06-13 07:24] VITALS: BP 125/73; PULSE 62; RESP 15; TEMP 36.9; O2SAT 95
[2022-06-13] MEDS: 0.9 % Sodium Chloride Flush 3 ML SYRINGE IVFLUSH (07:51)
[2022-06-13] MEDS: Magnesium Oxide 400 MG TABLET PO (07:51)
[2022-06-13] MEDS: allopurinoL 300 MG TABLET PO (07:51)
[2022-06-13] MEDS: metroNIDAZOLE 500 MG TABLET PO (07:51)
[2022-06-13 07:56] LABS: Anion Gap 15 (12-20); Blood Urea Nitrogen 4 mg/dL (9-16); Calcium 8.5 mg/dL (8.4-10.2); Carbon Dioxide 25 mmol/L (22-29); Chloride 105 mmol/L (96-108); Creatinine Clr Calc Pharmacy 111.3; Estimated Glomerular Filt Rate > 60; Glucose Random 79 mg/dL (60-115); Potassium 3.8 mmol/L (3.3-5.1); Sodium 141 mmol/L (135-145)
[2022-06-13 11:00] VITALS: BP 130/75; PULSE 64; RESP 15; TEMP 36.6; O2SAT 95
--- NOTE | 2022-06-13 13:09 | P.DS_ITS ---
DS: Providers Provider Date of Service: 06/13/22 Date of admission: 06/09/22 22:13 Primary care physician: Unknown Physician Consults: 06/09/22 22:11 Consult to General Surgery Routine Consulting Provider: Carlos Alberto James Reason for consultation: Diverticulitis w microperf Has provider been notified: No 06/10/22 06:32 Consult to Gastroenterology Routine Consulting Provider: Nepatli Weeks Reason for consultation: abnormal CT abd, pancolitis? Has provider been notified: No DS: Diagnosis Discharge Diagnosis (1) Acute diverticulitis: Status: Acute (2) Acute hypokalemia: Status: Acute DS: Summary Hospital Course Hospital Course: Chief Complaint: abd pain 57-year-old male with past medical history of gout presents to the hospital with complaints of lower abdominal pain.? Patient reports that his symptoms started about a week and a half ago, he also has history of hemorrhoids therefore with the persistent pain and that history of hemorrhoid he went to visit his GI doctor, of the GI doctor he became dizzy, the checked his blood pressure was elevated therefore he was sent to the hospital.? On arrival to the hospital patient's BP was found in the 160s/99 and improved with administration of 10 mg of IV hydralazine.? But as patient was complaining of lower abdominal pain, CT scan of the abdomen was obtained which showed diverticulitis with small microperforation/contained perforation.? On questioning the patient reports that his symptoms started about a week and half ago, 4/10, constant, nonradiating, localized to the lower abdomen across, not associated with any nausea or vomiting, no chest pain or shortness of breath, no cough, no urinary symptoms no lower extremity edema. He has no headache or change in vision.? Reports that he is feels anxious. On arrival to the ED patient's heart rate in 112, blood pressure 167/99. Labs are significant for WBC count of 8.6, lactic acid of 1.0, Abdomen pelvic CT has multiple abnormal findings including long segment thickening of the sigmoid and rectal wall with inflammatory fat stranding, differential include bowels fowler yanes Saba or acute diverticulitis, small pocket of loculated gas interposed between the rectum and the inflamed sigmoid suspicious for small microperforation/contained perforation. No pneumatosis to suggest specific evidence of bowel wall ischemia, prominent distended but not frankly dilated cluster degenerative bowel loops in the left hemiabdomen with mild mesenteric fat stranding and small reactive mesenteric lymph nodes differentials include localize ileus or enteritis versus mild mesenteric pancolitis Patient started on IV antibiotics and will be admitted for further management Hospital course: Acute diverticulitis with microperforation--required IV antibitoics with flagyl and ceftriaxone for 5 days, was seen by surgery and gi and recommended for colonscopy in a months. Patient's symptoms have improved presently without pain and tolerating regular diet. Will discharge with 5 more days of antibiotics (Ceftin and flagyl) ?abnormal abdominal CT with suspicion for enteritis vs pancolitis or bowel ischemia--clinically no evidence of bowel ischemia and same treatment as above Elevated LFts, hepatosteatosis--advise to stop drinking ?hypomagnesemia and hypokalemia due to chronic alcohol use, repleted ?gout - continue allopurinol hypokalemia : added potassium Time Spent with Patient Time attestation: Total time spent providing and/or coordinating discharge services: Discharge coordination time: Greater than 30 minutes Quality: Safe Use of Opioids Does Pt have an Active Cancer Diagnosis on the Problem List?: No Quality: Stroke Does the patient have a stroke diagnosis?: No Physical Exam Vital Signs: Vital Signs: Last Vital Signs Temp 97.9 F 06/13/22 11:00 Pulse 64 06/13/22 11:00 Resp 15 06/13/22 11:00 BP 130/75 06/13/22 11:00 Pulse Ox 95 06/13/22 11:00 O2 Del Method 06/13/22 11:00 BMI result Body Mass Index 21.6 Const: Other: General: AO X 3, no acute distress Resp: CTA bilateral CVS: S1,S2,RRR GI: +BS, NT, no distention Skin: No rash Neuro: motor grossly intact Psych: appropriate affect DS: Data Data Completed and Pending Labs on day of discharge: Laboratory Results - last 24 hr 06/13/22 05:57 Sodium 141 Potassium 3.8 D Chloride 105 Carbon Dioxide 25 Anion Gap 15 BUN 4 L Creatinine 0.77 Estim Creat Clear Calc 111.3 Estimated GFR > 60 Random Glucose 79 Calcium 8.5 Preliminary micro results at discharge 06/09/22 22:21 Blood Culture - Preliminary Blood - Venous No growth after 48 hours. 06/09/22 22:21 Blood Culture - Preliminary Blood - Venous No growth after 48 hours. Discharge Plan Discharge Anticipated Discharge Date/Time: 06/13/22 13:03 Patient Disposition: Home, Self-Care Discharge Diagnosis: Acute diverticulitis Referrals: Physician,Unknown J [[facility] Care Provider[facility] Medications: New metronidazole 500 mg tablet 500 mg PO TID Qty: 15 0RF cefuroxime axetil 500 mg tablet 500 mg PO BID 5 Days Qty: 10 0RF No Action allopurinol 300 mg tablet 1 tab PO DAILY Discharge Orders: Discharge Order (Routine); Ordered 06/13/22 Ordered By: Neftali Carter Diet: Advance to usual diet Activity on Discharge: As tolerated Stand Alone Forms: Patient Portal Discharge page Care Plan Goals: Full recovery from diverticulitis Health Concerns: Diverticulitis, liver cyst Plan of Treatment: Take Flagyl and Ceftin as recommended and follow up with your doctor in a week, a for drinking alcohol. Assessment: As above
--- NOTE | 2022-06-13 13:30 | MHC.CM.PN ---
Patient has been medically cleared for dc to home today, self care.
[2022-06-13 14:07] VITALS: BP 129/70
[2022-06-14 05:29] LABS: Hepatitis A Antibody IgM 0.15 Index (0-0.79); ~Hepatitis A Antibody IgM Nonreactive (Nonreactive)
[2022-06-14 14:02] LABS: Alpha Fetoprotein 5.8 ng/mL (<6.1)
== END 2022-06-13 14:56 | disposition home or self-care (01) | DRG 392 ==
LOC: HO.ED 20:07 → HO.EDOVER 22:37 → HO.S3 06-10 14:14
PROVIDERS: Internal Medicine; Admitting Provider Internal Medicine; Emergency Provider Internal Medicine; Visit Provider Internal Medicine
DX: K57.20 Diverticulitis of large intestine with perforation and abscess without bleeding (principal); K70.9 Alcoholic liver disease, unspecified; E83.42 Hypomagnesemia; K76.0 Fatty (change of) liver, not elsewhere classified; M10.9 Gout, unspecified; E87.6 Hypokalemia; Z20.822 Contact with and (suspected) exposure to COVID-19; Z79.899 Other long term (current) drug therapy
CPT/HCPCS: 36415; 71045; 74176; 74183; 80048; 80076; 82105; 82378; 82728; 83540; 83605; 83615; 83735; 84484; 85025; 85027; 85610; 85652; 86140; 86704; 86706; 86709; 86803; 87040; 87340; 87493; 87507; 87635; 93005; 96365; 96375; 99285; A9585; J0696; J1650; J2543; J3475

== ENCOUNTER 2022-07-26 10:40 | Emergency (ER) | payer OTHER, SELFPAY ==
[2022-07-26] VITALS (7 sets, daily range): BP systolic 143–170; BP diastolic 76–100; PULSE 77–103; RESP 16–18; TEMP 36.4–37.2; O2SAT 96–98; BMI 20.1
--- NOTE | ~2022-07-26 | CT_ITS ---
EXAMINATION: CT ABDOMEN AND PELVIS WITHOUT AND WITH IV CONTRAST. CLINICAL INFORMATION: Bleeding per rectum. COMPARISON: None TECHNIQUE: 5 mm thin axial and reformatted 2 mm thin sagittal coronal images of abdomen pelvis were obtained without and following IV 80 mL Omnipaque 350. 2 minute delayed images obtained through the abdomen. This CT examination was performed using dose optimization technique as appropriate, variously including the following: Automated exposure control Adjustment of MA and/or KV according to patient size(this includes techniques or standardized protocols for targeted exams where dose is matched to indication/reason for exam; extremities or head. Use of iterative reconstruction techniques. FINDINGS: On nonionic contrast there are no radiopaque gallstones or radiopaque renal calculi. Postcontrast the liver is normal size, contour and density. There is a 5 mm hypodensity right hepatic lobe segment 6 and a 1.9 cm hypodensity segment 7 most likely small cysts. No enhancing mass or intrahepatic ductal dilatation seen. The gallbladder is unremarkable. No wall thickening or stones seen. The pancreas is unremarkable. Spleen is unremarkable. Abdominal aorta and bifurcation into common iliac and external iliac arteries are widely patent. No abnormal size retroperitoneal or pelvic lymph nodes seen. There is diffuse colonic diverticulosis without diverticulitis. There is mild mural thickening of the sigmoid colon. There is no contrast extravasation to suspect any site of GI bleed. Nonspecific mild pericolonic fat stranding is seen in the sigmoid and rectosigmoid region. The small bowel loops unremarkable. Appendix is not seen with certainty. No free air or free fluid. Abdominal wall is unremarkable. Imaging to the pelvis reveals prominent bilaterally without canal and a small proximal right inguinal hernia. No free fluid or abnormal pelvic lymph nodes. The prostate gland is mildly enlarged. There are degenerative disc changes throughout lumbar spine from L2-L3 through L5/S1 disc level worse at the L5-S1 disc level.. CT/CT gi bleed abd pel wo/w IVcon IMPRESSION: There is colonic diverticulosis without acute diverticulitis. There is nonspecific fat stranding around the sigmoid colon and the rectosigmoid junction. There is mild mural thickening of the sigmoid colon. This could represent early changes of diverticulitis There is no contrast extravasation seen to see an acute site of GI bleed.
--- NOTE | 2022-07-26 10:53 | ECG_ITS ---
Test Reason : GI Bleed Blood Pressure : / mmHG Vent. Rate : 086 BPM Atrial Rate : 086 BPM P-R Int : 170 ms QRS Dur : 086 ms QT Int : 394 ms P-R-T Axes : 057 068 047 degrees QTc Int : 471 ms Normal sinus rhythm Nonspecific T wave abnormality Abnormal ECG When compared with ECG of 09-JUN-2022 16:00, Nonspecific T wave abnormality has replaced inverted T waves in Inferior leads Referred By: Selam Katz Electronically Signed By:CADEN HAMEED
--- NOTE | 2022-07-26 10:54 | ED.GIBLEED ---
HPI - GI Bleed General Chief complaint: GI Bleed Stated complaint: WEAKNESS,RECTAL BLEEDING SINCE SUNDAY PER EMS Time Seen by Provider: 07/26/22 10:53 Source: patient and old records reviewed Mode of arrival: EMS Limitations: no limitations History of Present Illness HPI Narrative: 57 yo male with hx of diverticulitis back in May with microperforation completed ceftin and flagyl. Did not bleed at that time. Has not had colonoscopy. He reports no ASA or blood thinner use. He notes since Sunday has had brb per rectum no clots without BMs at times even on his pants. He notes this happened up to 2 to 3 times a day. No bleeding today and had normal BM today. No prior rectal bleeding MD complaint: gross hematochezia Onset (ago): day(s) (Sunday) Pain Consistency: intermittent Severity: mild Relieving factors: none Exacerbating factors: none Context: hemorrhoids Associated symptoms: malaise Treatments Prior to Arrival: none Related Data Home Medications Medication Instructions Recorded Confirmed allopurinol 300 mg tablet 1 tab PO DAILY 06/09/22 06/10/22 Previous Rx's Medication Instructions Recorded cefuroxime axetil 500 mg tablet 500 mg PO BID 5 days #10 tabs 06/13/22 metronidazole 500 mg tablet 500 mg PO TID #15 tabs 06/13/22 amoxicillin 875 mg-potassium 1 tab PO BID #14 tabs 07/26/22 clavulanate 125 mg tablet Allergies Allergy/AdvReac Type Severity Reaction Status Date / Time No Known Allergies Allergy Verified 06/09/22 19:42 Review of Systems Review of Systems: Constitutional : No Weight loss, No Fever, No Chills ENT/Mouth : No sore throat, No Rhinorrhea Eyes: No Swelling, No Redness Cardiovascular : No Chest Pain, No SOB, NoEdema Respiratory : No Cough, No Sputum, No Wheezing Gastrointestinal : Positive Nausea, no Vomiting, no Diarrhea, no abdominal Pain, pos Hematochezia, No Melena Genitourinary : No Dysuria, No Urinary Frequency, No Hematuria, No Urgency Musculoskeletal : No joint pain, No Myalgias, No Joint Swelling Skin : No Skin Lesions, No rash Neuro : pos Weakness, No Numbness, No Dizziness, No Headache Psych : No Anxiety/Panic, No Depression Heme/Lymph: No Bruising, No Lymphadenopathy Endocrine : No Polyuria, No Polydipsia All other systems reviewed and are negative. [facility] Past Medical History Attestation statement: The following information was validated with the patient. Medical History (Updated 07/26/22 @ 16:00 by Selam Katz DO) Alcoholic liver disease Diverticulitis Gout Surgical History No pertinent past surgical history Family History Family History Other No family history of coronary artery disease Social History Social History Household Members: Spouse Housing: House Do you presently have visiting nurse or other home services: No Unable to assess alcohol history related to: Unknown Patient Tobacco Use Status: Never used Tobacco e-Cigarette/Vaping Use: Never Used Second Hand Smoke Exposure: No Advance Directives: No Advance Directives Information Provided: Yes service: No Current occupational status: employed Physical Exam Vital Signs: Vital Signs: Last Vital Signs Temp 97.6 F 07/26/22 11:03 Pulse 77 07/26/22 13:43 Resp 16 07/26/22 13:43 BP 143/76 H 07/26/22 13:43 Pulse Ox 97 07/26/22 13:43 O2 Del Method 07/26/22 13:43 BMI result Body Mass Index 20.1 Appearance: Alert. Oriented X3. No acute distress. Anxious Eyes: Pupils equal, round and reactive to light. ENT: Pharynx normal. Neck: Normal inspection. Neck supple. CVS: Normal heart rate and rhythm. Pulses normal. Respiratory: No respiratory distress. Breath sounds normal. Abdomen: Soft and non-tender. Rectal: light brown stool, no ext hemorrhoids noted Skin: Skin warm and dry. Normal skin color. Normal skin turgor. Extremities: No lower extremity edema. No calf ttp Neuro: Oriented X 3. No motor deficit. No sensory deficit. Course Course Course Narrative: unknown source of lactic acidosis - no abdominal pain no WBC count, afebrile, BP stable lactic acidosis likely due to ETOH - level 120 lactic acid has increased will continue IVF CT scan results pending. ?error in lactic acid will repeat, no rectal bleeding while in ED H/H stable has not bled since yesterday H/H stable no active GIB possible mild early diverticulitis pending repeat lactic acid will start on oral antibiotics, has not bled at all today possible infection suspected 358pm - will add cultures and zosyn though I do not believe lactic acid - will repeat lactic after 3rd liter NS this time, repeat lactic at 4.7 was drawn off LR line signed out to Dr. Corona no signs of bleeding here, heme neg stool, once repeat lactic acid negative will DC home MDM - GI Bleed MDM Narrative Medical decision making narrative: 57 yo male with hx of diverticulitis back in May now presents with painless rectal bleeding - he takes no ASA or blood thinners. At this time will obtain basic labs, CT scan GI bleed protocol. hydrate patient. Possible diverticular bleed given lack of pain vs inflammation vs mass vs internal hemorrhoids. Lab Data Result diagrams: 07/26/22 11:20 07/26/22 11:20 Labs: Lab Results 07/26/22 07/26/22 07/26/22 Range/Units 11:20 11:20 11:20 WBC 6.4 (4.8-10.8) X10*3/uL RBC 4.17 L (4.60-5.80) X10*6/uL Hgb 13.9 L (14.0-18.0) g/dl Hct 38.9 L (42.0-52.0) % MCV 93.3 (80.0-98.0) fL MCH 33.3 H (27.0-33.0) pg MCHC 35.7 (31.0-36.0) g/dl RDW 13.9 (11.0-16.0) % Plt Count 311 D (160-400) X10*3/uL MPV 9.1 L (9.4-12.4) fL Immature Gran % (Auto) 0.5 H (0.0-0.4) % Neut % (Auto) 65.9 (45-73) % Lymph % (Auto) 22.7 (20-40) % Cloud % (Auto) 9.7 (2-11) % Eos % (Auto) 0.3 (0-4) % Baso % (Auto) 0.9 (0-2) % Lymph # (Auto) 1.5 (1.2-4.9) X10*3/uL Cloud # (Auto) 0.6 (0.1-1.2) X10*3/uL Eos # (Auto) 0.0 (0.0-0.4) X10*3/uL Baso # (Auto) 0.1 (0.0-0.2) X10*3/uL Abs Immat Gran (auto) 0.03 (0.00-0.03) X10*3/uL Absolute Neuts (auto) 4.2 (2.0-8.3) x10*3/uL Absolute Nucleated RBC 0.000 (0.0-0.012) X10*3/uL Nucleated RBC % (auto) 0.0 (0.0-0.2) /100WBC PT 11.9 (10.0-13.1) SEC INR 1.0 (0.9-1.1) Sodium 144 (135-145) mmol/L Potassium 3.4 (3.3-5.1) mmol/L Chloride 105 (96-108) mmol/L Carbon Dioxide 25 (22-29) mmol/L Anion Gap 17 (12-20) BUN 13 D (9-16) mg/dL Creatinine 0.76 (0.5-1.4) mg/dL Estim Creat Clear Calc 105.1 Estimated GFR > 60 Random Glucose 103 (60-115) mg/dL Lactic Acid (0.5-2.0) mmol/L Lactic Acid F/U @ 2Hr (0.5-2.0) mmol/L Calcium 8.9 (8.4-10.2) mg/dL Magnesium 1.9 (1.6-2.6) mg/dL Total Bilirubin 1.3 H (0.0-1.0) mg/dL Direct Bilirubin 0.5 (0.0-0.5) mg/dL AST 67 H (5-37) U/L ALT 32 (0-40) U/L Alkaline Phosphatase 77 (39-117) U/L Troponin I High Sens (<3.5-35.0) ng/L Total Protein 7.4 (6.5-8.0) g/dL Albumin 4.1 (3.5-5.0) g/dL Lipase 46 (8-78) U/L Urine Color Urine Appearance Urine pH (5.0-9.0) Ur Specific Roland (1.005-1.025) Urine Protein (Neg-Trace) mg/dL Urine Glucose (UA) (Negative) mg/dL Urine Ketones (Negative) mg/dL Urine Blood (Negative) Urine Nitrite (Negative) Ur Leukocyte Esterase (Negative) Urine RBC (0-2) /HPF Urine WBC (0-5) /HPF Ur Squamous Epith Cells (0-2) /HPF Urine Bacteria (None Seen) Hyaline Casts (0-2) /LPF Stool Occult Blood (NEGATIVE) Ethyl Alcohol 120 mg/dL COVID-19 (ANNITA) (Negative) COVID-19 Clin Com Blood Type Antibody Screen 07/26/22 07/26/22 07/26/22 Range/Units 11:20 11:20 11:20 WBC (4.8-10.8) X10*3/uL RBC (4.60-5.80) X10*6/uL Hgb (14.0-18.0) g/dl Hct (42.0-52.0) % MCV (80.0-98.0) fL MCH (27.0-33.0) pg MCHC (31.0-36.0) g/dl RDW (11.0-16.0) % Plt Count (160-400) X10*3/uL MPV (9.4-12.4) fL Immature Gran % (Auto) (0.0-0.4) % Neut % (Auto) (45-73) % Lymph % (Auto) (20-40) % Cloud % (Auto) (2-11) % Eos % (Auto) (0-4) % Baso % (Auto) (0-2) % Lymph # (Auto) (1.2-4.9) X10*3/uL Cloud # (Auto) (0.1-1.2) X10*3/uL Eos # (Auto) (0.0-0.4) X10*3/uL Baso # (Auto) (0.0-0.2) X10*3/uL Abs Immat Gran (auto) (0.00-0.03) X10*3/uL Absolute Neuts (auto) (2.0-8.3) x10*3/uL Absolute Nucleated RBC (0.0-0.012) X10*3/uL Nucleated RBC % (auto) (0.0-0.2) /100WBC PT (10.0-13.1) SEC INR (0.9-1.1) Sodium (135-145) mmol/L Potassium (3.3-5.1) mmol/L Chloride (96-108) mmol/L Carbon Dioxide (22-29) mmol/L Anion Gap (12-20) BUN (9-16) mg/dL Creatinine (0.5-1.4) mg/dL Estim Creat Clear Calc Estimated GFR Random Glucose (60-115) mg/dL Lactic Acid 3.4 H* (0.5-2.0) mmol/L Lactic Acid F/U @ 2Hr (0.5-2.0) mmol/L Calcium (8.4-10.2) mg/dL Magnesium (1.6-2.6) mg/dL Total Bilirubin (0.0-1.0) mg/dL Direct Bilirubin (0.0-0.5) mg/dL AST (5-37) U/L ALT (0-40) U/L Alkaline Phosphatase (39-117) U/L Troponin I High Sens < 3.5 (<3.5-35.0) ng/L Total Protein (6.5-8.0) g/dL Albumin (3.5-5.0) g/dL Lipase (8-78) U/L Urine Color Urine Appearance Urine pH (5.0-9.0) Ur Specific Roland (1.005-1.025) Urine Protein (Neg-Trace) mg/dL Urine Glucose (UA) (Negative) mg/dL Urine Ketones (Negative) mg/dL Urine Blood (Negative) Urine Nitrite (Negative) Ur Leukocyte Esterase (Negative) Urine RBC (0-2) /HPF Urine WBC (0-5) /HPF Ur Squamous Epith Cells (0-2) /HPF Urine Bacteria (None Seen) Hyaline Casts (0-2) /LPF Stool Occult Blood NEGATIVE (NEGATIVE) Ethyl Alcohol mg/dL COVID-19 (ANNITA) (Negative) COVID-19 Clin Com Blood Type Antibody Screen 07/26/22 07/26/22 07/26/22 Range/Units 11:20 11:22 13:30 WBC (4.8-10.8) X10*3/uL RBC (4.60-5.80) X10*6/uL Hgb (14.0-18.0) g/dl Hct (42.0-52.0) % MCV (80.0-98.0) fL MCH (27.0-33.0) pg MCHC (31.0-36.0) g/dl RDW (11.0-16.0) % Plt Count (160-400) X10*3/uL MPV (9.4-12.4) fL Immature Gran % (Auto) (0.0-0.4) % Neut % (Auto) (45-73) % Lymph % (Auto) (20-40) % Cloud % (Auto) (2-11) % Eos % (Auto) (0-4) % Baso % (Auto) (0-2) % Lymph # (Auto) (1.2-4.9) X10*3/uL Cloud # (Auto) (0.1-1.2) X10*3/uL Eos # (Auto) (0.0-0.4) X10*3/uL Baso # (Auto) (0.0-0.2) X10*3/uL Abs Immat Gran (auto) (0.00-0.03) X10*3/uL Absolute Neuts (auto) (2.0-8.3) x10*3/uL Absolute Nucleated RBC (0.0-0.012) X10*3/uL Nucleated RBC % (auto) (0.0-0.2) /100WBC PT (10.0-13.1) SEC INR (0.9-1.1) Sodium (135-145) mmol/L Potassium (3.3-5.1) mmol/L Chloride (96-108) mmol/L Carbon Dioxide (22-29) mmol/L Anion Gap (12-20) BUN (9-16) mg/dL Creatinine (0.5-1.4) mg/dL Estim Creat Clear Calc Estimated GFR Random Glucose (60-115) mg/dL Lactic Acid (0.5-2.0) mmol/L Lactic Acid F/U @ 2Hr (0.5-2.0) mmol/L Calcium (8.4-10.2) mg/dL Magnesium (1.6-2.6) mg/dL Total Bilirubin (0.0-1.0) mg/dL Direct Bilirubin (0.0-0.5) mg/dL AST (5-37) U/L ALT (0-40) U/L Alkaline Phosphatase (39-117) U/L Troponin I High Sens (<3.5-35.0) ng/L Total Protein (6.5-8.0) g/dL Albumin (3.5-5.0) g/dL Lipase (8-78) U/L Urine Color Yellow Urine Appearance Clear Urine pH 7.0 (5.0-9.0) Ur Specific Roland 1.015 (1.005-1.025) Urine Protein Negative (Neg-Trace) mg/dL Urine Glucose (UA) Negative (Negative) mg/dL Urine Ketones Negative (Negative) mg/dL Urine Blood Trace H (Negative) Urine Nitrite Negative (Negative) Ur Leukocyte Esterase Negative (Negative) Urine RBC 3-5 H (0-2) /HPF Urine WBC 0-5 (0-5) /HPF Ur Squamous Epith Cells 0-2 (0-2) /HPF Urine Bacteria None Seen (None Seen) Hyaline Casts 0-2 (0-2) /LPF Stool Occult Blood (NEGATIVE) Ethyl Alcohol mg/dL COVID-19 (ANNITA) Negative (Negative) COVID-19 Clin Com See Note Blood Type B Positive Antibody Screen NEGATIVE 07/26/22 07/26/22 Range/Units 13:59 15:00 WBC (4.8-10.8) X10*3/uL RBC (4.60-5.80) X10*6/uL Hgb (14.0-18.0) g/dl Hct (42.0-52.0) % MCV (80.0-98.0) fL MCH (27.0-33.0) pg MCHC (31.0-36.0) g/dl RDW (11.0-16.0) % Plt Count (160-400) X10*3/uL MPV (9.4-12.4) fL Immature Gran % (Auto) (0.0-0.4) % Neut % (Auto) (45-73) % Lymph % (Auto) (20-40) % Cloud % (Auto) (2-11) % Eos % (Auto) (0-4) % Baso % (Auto) (0-2) % Lymph # (Auto) (1.2-4.9) X10*3/uL Cloud # (Auto) (0.1-1.2) X10*3/uL Eos # (Auto) (0.0-0.4) X10*3/uL Baso # (Auto) (0.0-0.2) X10*3/uL Abs Immat Gran (auto) (0.00-0.03) X10*3/uL Absolute Neuts (auto) (2.0-8.3) x10*3/uL Absolute Nucleated RBC (0.0-0.012) X10*3/uL Nucleated RBC % (auto) (0.0-0.2) /100WBC PT (10.0-13.1) SEC INR (0.9-1.1) Sodium (135-145) mmol/L Potassium (3.3-5.1) mmol/L Chloride (96-108) mmol/L Carbon Dioxide (22-29) mmol/L Anion Gap (12-20) BUN (9-16) mg/dL Creatinine (0.5-1.4) mg/dL Estim Creat Clear Calc Estimated GFR Random Glucose (60-115) mg/dL Lactic Acid 4.7 H* (0.5-2.0) mmol/L Lactic Acid F/U @ 2Hr 4.2 H* (0.5-2.0) mmol/L Calcium (8.4-10.2) mg/dL Magnesium (1.6-2.6) mg/dL Total Bilirubin (0.0-1.0) mg/dL Direct Bilirubin (0.0-0.5) mg/dL AST (5-37) U/L ALT (0-40) U/L Alkaline Phosphatase (39-117) U/L Troponin I High Sens (<3.5-35.0) ng/L Total Protein (6.5-8.0) g/dL Albumin (3.5-5.0) g/dL Lipase (8-78) U/L Urine Color Urine Appearance Urine pH (5.0-9.0) Ur Specific Roland (1.005-1.025) Urine Protein (Neg-Trace) mg/dL Urine Glucose (UA) (Negative) mg/dL Urine Ketones (Negative) mg/dL Urine Blood (Negative) Urine Nitrite (Negative) Ur Leukocyte Esterase (Negative) Urine RBC (0-2) /HPF Urine WBC (0-5) /HPF Ur Squamous Epith Cells (0-2) /HPF Urine Bacteria (None Seen) Hyaline Casts (0-2) /LPF Stool Occult Blood (NEGATIVE) Ethyl Alcohol mg/dL COVID-19 (ANNITA) (Negative) COVID-19 Clin Com Blood Type Antibody Screen ECG Data Attestation: I personally reviewed and interpreted this ECG as follows: ECG interpretation date: 07/26/22 ECG interpretation time: 11:15 Interpretation: Rate: 86 Rhythm: NSR [place]: normal Normal P waves. Normal BRODY. Normal QRS complex. ST T wave : normal no SATURNINO qTC: normal prior studies: no acute ischemia The study has been interpreted contemporaneously by me. Discharge Plan Discharge Clinical Impression: Bright red rectal bleeding, Diverticulitis, Acidosis, lactic, Alcohol abuse Patient Disposition: Still a Patient Instructions: Gastrointestinal Bleeding (ED), Diverticulitis (ED), Abuse of Alcohol (ED) Additional Instructions: return to ED for any worsening symptoms or concerns avoid aspirin avoid alcohol your stool tested negative for blood Prescriptions: New amoxicillin-pot clavulanate 875-125 mg tablet 1 tab PO BID Qty: 14 0RF No Action allopurinol 300 mg tablet 1 tab PO DAILY cefuroxime axetil 500 mg tablet 500 mg PO BID 5 Days Qty: 10 0RF metronidazole 500 mg tablet 500 mg PO TID Qty: 15 0RF Referrals: Physician,None [Primary Care Provider] - 2 days Stand Alone Forms: Work/School Release
[2022-07-26 11:27] LABS: MANUAL DIFF FLAG NO
[2022-07-26 11:29] LABS: Basophils Absolute Auto 0.1 X10*3/uL (0.0-0.2); Basophils Percent Auto 0.9 % (0-2); Eosinophils Percent Auto 0.3 % (0-4); Hematocrit 38.9 % (42.0-52.0); Hemoglobin 13.9 g/dl (14.0-18.0); Imm Gran Abs Auto 0.03 X10*3/uL (0.00-0.03); Imm Gran Pct Auto 0.5 % (0.0-0.4); Lymphocytes Absolute Auto 1.5 X10*3/uL (1.2-4.9); Lymphocytes Percent Auto 22.7 % (20-40); Mean Corpuscular HGB Conc 35.7 g/dl (31.0-36.0); Mean Corpuscular Hemoglobin 33.3 pg (27.0-33.0); Mean Corpuscular Volume 93.3 fL (80.0-98.0); Mean Platelet Volume 9.1 fL (9.4-12.4); Monocytes Absolute Auto 0.6 X10*3/uL (0.1-1.2); Monocytes Percent Auto 9.7 % (2-11); Neutrophils Absolute Auto 4.2 x10*3/uL (2.0-8.3); Neutrophils Percent Auto 65.9 % (45-73); Platelet Count 311 X10*3/uL (160-400); Red Blood Count 4.17 X10*6/uL (4.60-5.80); Red Cell Distribution Width 13.9 % (11.0-16.0); White Blood Count 6.4 X10*3/uL (4.8-10.8)
[2022-07-26] MEDS: Lactated Ringers 1,000 ML 999 ML IV ×2 (11:30→13:43)
[2022-07-26 11:31] LABS: OBS Int Ctl Valid YES; OBS1 NEGATIVE (NEGATIVE)
[2022-07-26 11:38] LABS: Prothrombin Time 11.9 SEC (10.0-13.1)
[2022-07-26 11:42] LABS: COVID-19 Test Negative (Negative); IDNOW Serial# 9DB6401D
[2022-07-26 11:45] LABS: Alanine Aminotransferase 32 U/L (0-40); Albumin Level 4.1 g/dL (3.5-5.0); Alkaline Phosphatase 77 U/L (39-117); Anion Gap 17 (12-20); Aspartate Amino Transferase 67 U/L (5-37); Bilirubin Direct 0.5 mg/dL (0.0-0.5); Bilirubin Total 1.3 mg/dL (0.0-1.0); Blood Urea Nitrogen 13 mg/dL (9-16); Calcium 8.9 mg/dL (8.4-10.2); Carbon Dioxide 25 mmol/L (22-29); Chloride 105 mmol/L (96-108); Creatinine Clr Calc Pharmacy 105.1; Estimated Glomerular Filt Rate > 60; Glucose Random 103 mg/dL (60-115); Lipase 46 U/L (8-78); Magnesium 1.9 mg/dL (1.6-2.6); Potassium 3.4 mmol/L (3.3-5.1); Sodium 144 mmol/L (135-145); Total Protein 7.4 g/dL (6.5-8.0)
[2022-07-26 11:48] LABS: Troponin-I High Sensitivity < 3.5 ng/L (<3.5-35.0)
[2022-07-26 12:18] LABS: Lactic Acid 3.4 mmol/L (0.5-2.0)
[2022-07-26 12:39] LABS: Ethanol 120 mg/dL
[2022-07-26] MEDS: iohexoL 350 MG/ML 100 ML INFUS..BTL IV (12:57)
[2022-07-26 13:25] LABS: Reflex Lactate? Lactic Acid Added
[2022-07-26 13:40] LABS: Appearance Urine Clear; Color Urine Yellow; Glucose Urine UA Negative (Negative); Leukocyte Esterase Urine Negative (Negative); Nitrite Urine Negative (Negative); Specific Gravity - Urine 1.015 (1.005-1.025); UMIC TRIGGER UACC YES; Urine Blood Trace (Negative); Urine Ketones Negative (Negative); Urine Protein Negative (Neg-Trace)
[2022-07-26 13:42] LABS: Bacteria Urine None Seen (None Seen); Hyaline Casts Urine 0-2 /LPF (0-2); Squamous Epithelial Cell Urine 0-2 /HPF (0-2); WBC Urine 0-5 /HPF (0-5)
[2022-07-26 14:27] LABS: ~Lactic Acid-LAB USE ONLY 4.2 mmol/L (0.5-2.0)
[2022-07-26] MEDS: 0.9 % Sodium Chloride 1,000 ML 999 ML IV ×2 (15:53→18:19)
[2022-07-26 15:56] LABS: Lactic Acid 4.7 mmol/L (0.5-2.0)
[2022-07-26 16:02] LABS: Reflex Lactate? 2 Y
[2022-07-26] MEDS: LORazepam 1 MG TABLET PO (16:46)
[2022-07-26 17:03] LABS: Reflex Lactate? Lactic Acid Added
[2022-07-26] MEDS: Piperacillin Sodium/Tazobactam 3.375 GM in 0.9 % Sodium Chloride 50 ML IV (17:17)
[2022-07-26 17:42] LABS: ~Lactic Acid-LAB USE ONLY 2.4 mmol/L (0.5-2.0)
== END 2022-07-26 21:25 | disposition home or self-care (01) ==
PROVIDERS: Emergency Medicine; Emergency Provider Emergency Medicine Emergency Medical Services
DX: K57.32 Diverticulitis of large intestine without perforation or abscess without bleeding (principal); K92.1 Melena; R10.9 Unspecified abdominal pain; Y90.6 Blood alcohol level of 120-199 mg/100 ml; F10.10 Alcohol abuse, uncomplicated; Z20.822 Contact with and (suspected) exposure to COVID-19; Z79.899 Other long term (current) drug therapy
CPT/HCPCS: 36415; 74178; 80048; 80076; 81001; 82077; 82272; 83605; 83690; 83735; 84484; 85025; 85610; 86850; 86900; 86901; 87040; 87635; 93005; 96361; 96365; 99285; J2543; Q9967

== ENCOUNTER 2023-09-26 09:52 | Outpatient (AMB) | payer OTHER, SELFPAY ==
--- NOTE | 2023-09-26 09:58 | AM.OFFWIN_ITS ---
Intake Vital Signs 09/26/23 10:01 Height 6 ft 1 in Weight 73.482 kg BMI 21.4 BP not taken reason Patient Refused Pulse 82 Temp 97.8 F Temp Source Temporal Artery Scan Pulse Oximetry (%) 99 Oxygen Delivery Method Room Air Intake Visit Reasons: EP, Left hand pain Intake Note: Pt is here c/o left hand pain. Pt state he did fall and injured his hand and then later banged it with an oven door. Patient Tobacco Use Status: Never used Tobacco Allergies No Known Allergies Allergy (Verified 09/26/23 10:02) Do you need a note to return to daycare/school/sports/work: No HPI HPI Comments History of Present Illness Details 1006 58 year old male presents w/ sever L wri st pain X few days worsening now reporting inability to move left wrist. Reports L wrist is warm and extremely painful. Reports he tripped a few days ago and hit his hand s/p tripping on an oven door. He reports pain > 10/10 w/ a/c intermittent numbness/tingling. Denies fevers chills. PE significant swelling to patients left wrist , unable to move L wrist secondary to pain, ocerlying errythema and warmth to left wrist. < 2 sec cap refil to b/l UE digits. Can wiggle all fingers b/l. Normal sensation distally. Pain out of proporition on exam patient screaming and crying concerns for possible infected bursitis versus septic joint. No signs of neurovascular compromise arterial occlusion. Traction dislocation should be ruled out however pain control is a priority as patient is not even tolerating the touching his wrist at all cannot move his wrist. Advised to go into an [facility] department for further evaluation he may require CBC CMP to rule out infection Plan- called [facility] ED for expect. [facility] Medical History Diverticulitis Alcoholic liver disease Gout Surgical History No pertinent past surgical history Family History Other No family history of coronary artery disease Social History Household Members: Spouse Housing: House Do you presently have visiting nurse or other home services: No Unable to assess alcohol history related to: Unknown Alcohol intake: current Patient Tobacco Use Status: Never used Tobacco e-Cigarette/Vaping Use: Never Used Second Hand Smoke Exposure: No service: No Current occupational status: employed Review of Systems Const Details: Constitutional : No Weight loss, No Fever, No Chills, No Fatigue, No Malaise ENT/Mouth : No sore throat, No Rhinorrhea Eyes: No Eye Pain, No Swelling, No Redness Cardiovascular : No Chest Pain, No SOB, No Dyspnea on Exertion, No Orthopnea, No Edema, No Palpitations Respiratory : No Cough, No Sputum, No Wheezing Gastrointestinal : No Nausea, No Vomiting, No Diarrhea, No Constipation, No abdominal Pain, No Hematochezia, No Melena Genitourinary : No Dysuria, No Urinary Frequency, No Hematuria, Musculoskeletal : + joint pain, No Myalgias, + Joint Swelling Skin : No Skin Lesions, No rash Neuro : No Weakness, No Numbness, No Dizziness, No Headache Psych : No Anxiety/Panic, No Depression All other systems reviewed and are negative All systems reviewed & are unremarkable except as noted in HPI and below Physical Exam Vital Signs: Last Vital Signs Temp 97.8 F 09/26/23 10:01 Pulse 82 09/26/23 10:01 Pulse Ox 99 09/26/23 10:01 Oxygen Delivery Method Room Air 09/26/23 10:01 BMI result Body Mass Index 21.4 vss Appearance: Alert.? Oriented X3.? No acute distress.? Head: Normocephalic, atraumatic, no step-offs or deformities Eyes: Pupils equal, round and reactive to light.? CVS: Pulses normal.? Respiratory: No respiratory distress.? Abdomen: Soft and nontender.? Skin: Skin warm and dry.? Normal skin color.? Normal skin turgor.? Extremities: No lower extremity edema.? No calf ttp. 5/5 strength to bilateral upper and lower extremities significant swelling to patients left wrist , unable to move L wrist secondary to pain, ocerlying errythema and warmth to left wrist. < 2 sec cap refil to b/l UE digits. Can wiggle all fingers b/l. Normal sensation distally. Pain out of proporition on exam patient screaming and crying Back: No midline tenderness, no C-spine tenderness, full range of motion, no CVA tenderness bilaterally Neuro: Oriented X 3.? No motor deficit.? No sensory deficit. CN 2-12 intact Assessment & Plan Assessment & Plan (1) Left wrist pain: Code(s): M25.532 - Pain in left wrist Plan Patient will go to [facility] ed Coding Level of Care Code Est Pt Level 3 (46353) Diagnoses Left wrist pain M25.532
[2023-09-26 10:01] VITALS: PULSE 82; TEMP 36.6; O2SAT 99; BMI 21.4
== END 2023-09-26 10:21 | disposition home or self-care (01) ==
PROVIDERS: Visit Provider Physician Assistant
DX: M25.532 Pain in left wrist (principal)
CPT/HCPCS: 99213